=== PATIENT | female | born 1940 | race Caucasian/White ===

== ENCOUNTER 2023-11-22 16:45 | Inpatient (IN) | payer MEDICARE, BC, SELFPAY ==
[2023-11-22] VITALS (7 sets, daily range): BP systolic 119–162; BP diastolic 68–89; PULSE 97; BMI 22.8
--- NOTE | 2023-11-22 12:41 | ED.GENMED ---
History of Present Illness
General
Chief Complaint: Abdominal Symptoms
Source: patient
Exam Limitations: none
Time Seen by Provider: 11/22/23 12:41
Nursing documentation reviewed up to this point in time: agreed with
Travel History
Have you had any contact with someone who has COVID-19?: No
Do you have any symptoms of coronavirus? Fever > 100 degrees, chills, cough, shortness of breath, sore throat, loss of taste or smell, muscle aches, or headache?: No
History of Present Illness
History of Present Illness:
83-year-old female w h/o HLD, HTN, breast CA, sent here from [facility] for abdominal swelling, recently discovered pancreatic mass concern for obstructive process, may need stent/MRCP. She has been evaluated at [facility], had CT scan
there, showed 'Pancreas cancer' per patient. Sent to [facility] for evaluation and had her first appointment yesterday, follow up visit today with Dr. Garcia and sent here for elevated liver enzymes and abd swelling.
Pt denies pain, states 'I feel good.' Denies CP, SOB, palpitations but it is noted on EKG she has Afib with RVR which she's never had before.
Review of Systems
Review of Systems
Allergies reviewed?: Yes
All Other Systems: ROS reviewed and negative except as documented in HPI and ROS
Constitutional: Denies fever, fatigue or chills
Respiratory: Denies trouble breathing
Cardiac: Denies chest pain
ABD/GI: Reports other (stools are yellow); Denies abdominal pain, nausea or vomiting
: Reports other (urine is bright yellow); Denies dysuria, frequency or difficulty voiding
Musculoskeletal: Reports no symptoms
Skin: Reports no symptoms
Neurological: Reports no symptoms
Phy Exam
Physical Exam
Physical Exam:
GENERAL: No acute distress. A&Ox3.
CONSTITUTIONAL: Afebrile.
EYES: clear, conjunctivae normal
ENMT: moist mucus membranes, Pharynx nl
RESPIRATORY: Regular respirations, nonlabored, lungs clear.
CARDIOVASCULAR: Irregular rate, tachycardic. no murmurs, no rubs. A fib on bedside monitor.
GI: abdomen soft, distended, mid abd firm mass when pt pushes down and tightens abd muscles.
MUSCULOSKELETAL: Moves with ease. Well perfused. No edema.
SKIN: Warm, dry, yellow hue to skin
PSYCH: Normal mood and affect. Well kept, interactive and appropriate
NEUROLOGIC: Awake, alert and oriented. No focal neurological deficits
Course
Orders/Labs/Results
Orders:
Orders
11/22/23
Electrocardiogram (*1) Stat
Comment: ALREADY DONE
11/22/23 13:05
Electrocardiogram (*1) Urgent
Reason for Study: Atrial Fibrillation
EKG- Treatment ONCE
0.9% Sodium Chloride 1000 ml [Nss] 1,000 ml IV BOLUS
11/22/23 13:47
CA 19-9 [S] Urgent
Comment: ADD ON
Complete Blood Count/With Diff Urgent
Comprehensive Metabolic Panel Urgent
Lipase Urgent
Magnesium Urgent
Comment: MAG ADDED ON BY FLOOR 4:10PM 11-22-23
TSH Reflex To Free T4 Urgent
Comment: TSH REFLEX ADDED ON BY FLOOR 4:45PM 11-22-23
11/22/23 Dinner
Regular
At Your Request: Full Participation
11/22/23 15:07
GASTROINTESTINAL CONSULT Urgent
Consulting Provider: Arina Allen
Was physician already notified: Yes
Reason for consult: biliary obstruction, Dr. Davidson requests consult, pt admitted, not urgent
11/22/23 15:37
Echo 2D MMode Color/Doppler Routine
Reason for Study: afib
Potassium Chloride [KCl] 40 meq PO NOW STA
11/22/23 15:54
CARDIOLOGY CONSULT Routine
Consulting Provider: Josemanuel Gay
Was physician already notified: Yes
Reason for consult: new Afib
11/22/23 16:00
Add On- LAB Routine
Tests Added?: ca 19-9
11/22/23 16:05
Old Records Request [Obtain Records] As Directed
Dates of Information to be Released: last
Type of Information Requested: Consults
Comment: Dr Lorenzana [facility]
11/22/23 16:06
Admit/Transfer Patient As Directed
Co-Sign Provider:
Level of Care: Inpatient admission
Assign to:: Telemetry
Physician / Group: Hospitalist
Diagnosis: Painless jaundice, atrial fibrillation-new onset
Reason for Telemetry: Arrhythmia
Date to Stop Telemetry: 11/25/23
Time to Stop Telemetry: 11:00
Reason for Hospitalization: Painless jaundice, atrial fibrillation-new onset
Expected length of stay greater than two midnights?: Yes
ELOS- Estimated Length of Stay in days: 3
I certify the patient meets the requirements for IP care: Yes
HEMATOLOGY CONSULT Routine
Consulting Provider: Romeo Davidson
Was physician already notified: Yes
Reason for consult: pancre ca
11/22/23 16:07
Code Status As Directed
Resuscitation Status: Full Code
11/22/23 16:11
Add On- LAB Routine
Tests Added?: mag
11/22/23 16:13
MR Abdomen W/o & W Contrast Routine
Reason For Exam: with MRCP also. TY
Recent pill cam endoscopy?: No
11/22/23 18:07
Bisacodyl [Dulcolax] 10 mg RECTAL [id number] PRN
Dextrose 50%-Water [Dextrose 50% Syringe] 12.5 grams IV [id number] PRN
Enoxaparin Sodium [Lovenox] 40 mg SC QPM
Glucagon [GlucaGen] 1 mg IM PRN PRN
Insulin Aspart Corrective Low [Novolog Flexpen-Low Resistance] See Protocol SC AC
Oxycodone [Roxicodone] 5 mg PO Q4HPRN PRN
11/22/23 18:07
Activity As Directed
Activity Level: Ambulate
Bedside Glucose Monitoring As Directed
Frequency: AC&HS
Additional Instructions:: Change to q6h if pt on TPN, tube feeding or not eating
Vital Signs As Directed
Frequency: Per unit guidelines
DX Deep Vein Thrombosis Video Routine
11/22/23 18:46
Troponin I Q6H
11/22/23 20:00
Docusate Sodium [Colace] 100 mg PO BID
Lisinopril [Zestril] 10 mg PO BID
Metoprolol Xl [Toprol Xl] 12.5 mg PO BID
Sennosides [Senokot] 8.6 mg PO BID
11/22/23 21:45
Troponin I Q6H
11/22/23 22:00
Gabapentin [Neurontin] 100 mg PO TID
11/23/23 03:45
Troponin I Q6H
11/23/23 06:00
Complete Blood Count/No Diff IN AM
Complete Blood Count/With Diff IN AM
Glycohemoglobin (HgbA1c) IN AM
Magnesium IN AM
11/23/23 08:00
Loratadine [Claritin] 10 mg PO DAILY
Polyethylene Glycol Powder [Miralax] 17 grams PO DAILY
11/25/23 11:00
DC Protocol for Telemetry ONCE
Abnormal Lab Results
11/22/23
13:47
RBC 3.96 L 10^6/uL
(4.20-5.40)
Hct 34.3 L %
(37.0-47.0)
RDW 15.3 H %
(11.5-14.5)
MPV 10.8 H fL
(7.4-10.4)
Absolute Lymphs (auto) 1.1 L 10^3/uL
(1.2-3.4)
Absolute Monos (auto) 0.9 H 10^3/uL
(0.1-0.6)
Lymphocytes % 14.1 L %
(20.5-51.1)
Monocytes % 12.1 H %
(1.7-9.3)
Potassium 3.3 L mmol/L
(3.5-5.1)
BUN 27 H mg/dl
(7-17)
Glucose 216 H mg/dl
(70-99)
Magnesium 1.5 L mg/dl
(1.6-2.3)
Total Bilirubin 9.0 H mg/dl
(0.2-1.3)
AST 287 H U/L
(14-36)
ALT 163 H U/L
(0-35)
Alkaline Phosphatase 1097 H U/L
(38-126)
11/22/23 13:47
11/22/23 13:47
Vital Signs
Initial and Last Documented VS:
Initial Vital Signs
Temp Pulse Resp BP Pulse Ox
98.5 F 99 20 162/89 96
11/22/23 12:08 11/22/23 12:08 11/22/23 12:08 11/22/23 12:08 11/22/23 12:08
Last Documented Vital Signs
Temp Pulse Resp BP Pulse Ox
97.9 F 65 18 119/75 98
11/22/23 18:09 11/22/23 18:09 11/22/23 18:09 11/22/23 18:09 11/22/23 18:09
MDM/Problems Addressed
MDM/Problems Addressed:
83-year-old female w h/o HLD, HTN, breast CA, sent here from [facility] for abdominal swelling, recently discovered pancreatic mass concern for obstructive process, may need stent/MRCP. She has been evaluated at [facility], had CT scan
there, showed 'Pancreas cancer' per patient. Sent to [facility] for evaluation and had her first appointment yesterday, follow up visit today with Dr. Garcia and sent here for elevated liver enzymes and abd swelling.
Pt denies pain, states 'I feel good.' Denies CP, SOB, palpitations but it is noted on EKG she has Afib with RVR which she's never had before.
1:05 p.m.
Monitor now showing NSR HR 72
2:58 p.m.
CBC:
CMP: Bilirubin 8
No success in obtaining CT abd report from [facility].
Spoke with Oncology Dr. Davidson. States pt w h/o lung CA with RUL lobectomy, recent found pancreatic head mass and liver enzymes and bilirubin up on yesterday's labs.
Dr. Davidson texted the report to me ' findings concerning for neoplasm involving the head of the pancreas. There is underlying atrophy in the dictation of the pancreatic duct in the body and tail the pancreas as well as intra and extrahepatic
biliary ductal dilation.'. He spoke with Dr. Thomas Nash who does biliary stenting and will be available to stent this patient on after holiday weekend (he is away until then)
Requests MRCP today, consult GI, admit to Hospitalist
Pt remains stable, is comfortable and OK with plan
Hospitalist notified of admission.
*Critical Care Note
Total Time (30-74mins, 75-104mins- exclusive of procedures): Not Applicable
ED Attending Note
-
Portions of this chart may have been created with voice recognition software.� Occasional wrong word or��sound alike� substitutions may have occurred due to the inherent limitations of voice recognition software.
Discharge Plan
Departure
Patient Disposition: Admit
Date of Disposition: 11/22/23
Time of Disposition: 14:53
Admit to: Med/Surg
Presentation/result/management discussed w/ accepting MD/DO: Hospitalist
Condition: Fair
Discharge Problem:
Mass of head of pancreas, New onset a-fib, Atrial fibrillation with RVR, Jaundice, Abdominal distension
Interventions
Interventions:
*Risk Screen - Suicide Last Done: 11/22/23 12:30
*General Assessment Last Done: 11/22/23 12:30
*Neglect/Abuse Screening Last Done: 11/22/23 12:30
ED- Fall Risk Assessment Last Done: 11/22/23 17:44
*ED COVID-19 Vaccine History Last Done: 11/22/23 12:30
*Nursing Disposition Last Done: 11/22/23 17:44
DP-Cvcegu-Atwbyxkocb Assessment Last Done: 11/22/23 12:29
Discharge Date and Time
Discharge Date/Time: 11/22/23 17:57
[2023-11-22] MEDS: NSS 1000 IV (13:52)
[2023-11-22 14:01] LABS: % Basophils 0.9 % (0-2); % Eosinophils 2.2 % (0-6); % Immature Granulocytes 0.4 % (0-0.5); % Lymphocytes 14.1 % (20.5-51.1); % Monocytes 12.1 % (1.7-9.3); % Neutrophils 70.3 % (42.2-75.2); Absolute Basophils 0.1 10^3/uL (0-0.2); Absolute Eosinophils 0.2 10^3/uL (0-0.7); Absolute Lymphocytes 1.1 10^3/uL (1.2-3.4); Absolute Monocytes 0.9 10^3/uL (0.1-0.6); Absolute Neutrophils 5.4 10^3/uL (1.4-6.5); Hematocrit 34.3 % (37.0-47.0); Mean Corpuscular Hgb 30.3 pg (27.0-31.0); Mean Corpuscular Volume 86.6 fL (81.0-99.0); Mean Platelet Volume 10.8 fL (7.4-10.4); Nucleated Red Blood Cells % 0 %; Platelet Count 320 10^3/uL (130-400); Red Blood Cell Count 3.96 10^6/uL (4.20-5.40); Red Cell Dist. Width 15.3 % (11.5-14.5); White Blood Cell Count 7.7 10^3/uL (4.8-10.8)
[2023-11-22 14:14] LABS: ALT (SGPT) 163 U/L (0-35); AST (SGOT) 287 U/L (14-36); Albumin 3.5 g/dl (3.5-5.0); Alkaline Phosphatase 1097 U/L (38-126); Blood Urea Nitrogen 27 mg/dl (7-17); Calcium 10.1 mg/dl (8.4-10.2); Carbon Dioxide 29 mmol/L (22-30); Chloride 98 mmol/L (98-107); Glucose 216 mg/dl (70-99); Lipase 157 U/L (23-300); Potassium 3.3 mmol/L (3.5-5.1); Sodium 137 mmol/L (135-145); Total Protein 6.9 g/dl (6.3-8.2); eGFR > 60.00
--- NOTE | 2023-11-22 15:32 | HPS.HSE ---
Family Physician
-
Family Physician: Ana Zelaya
Chief Complaint
-
Abnormal CT
History of Present Illness
83-year-old female had a CT done at [facility] which showed pancreatic mass but it she [facility] patient here for MRI and also possible CBD stent and rule out infection. ER Pt has been diagnosed with Afib also. She converted back to
regular rhythm . Patient denies any fevers or chills. She has noted dark urine and also yellow eyes. Patient also has 25 pound weight loss over 4 months and loss of appetite. She also noted a lump on her abdomen
Medical History
Past Medical History
Past Medical History: Reports Other
Additional Past Medical History:
Breast cancer, lung cancer, Hypertension, hyperlipidemia, 'brain bleed on the right side from a blood clot'-stroke, diabetes
Past Surgical History: Reports Other
Additional Past Surgical History:
Spine surgery, right breast cancer surgery, left lung lobectomy, left carotid stent
Social History
Tobacco: Former Smoker (Quit smoking 2003)
Alcohol: Other (She is to drink half a glass of wine up until a month ago then totally quit)
Drug: None
Personal:
Living: With Family
Family History
Family History: Cancer (Father had cancer of head and neck, lung cancer, sister with pancreatic cancer, another sister with bladder cancer, he had another sister with WHITE WASHER PILER malignancy)
Allergies / Home Medications
Allergies reflects when Allergies were last updated in [facility].
Home Medications with original date entered in [facility]
Allergy/Medication List:
Allergies
Allergy/AdvReac Type Severity Reaction Status Date / Time
adhesive tape Allergy Unknown Verified 11/22/23 12:08
Home Medications
amlodipine 5 mg tablet (Norvasc) 5 mg PO DAILY 11/22/23
ascorbic acid (vitamin C) 100 mg tablet (Vitamin C) 400 mg PO DAILY 11/22/23
aspirin 81 mg tablet,delayed release 81 mg PO DAILY 11/22/23
atorvastatin 40 mg tablet (Lipitor) 40 mg PO DAILY 11/22/23
calcium carbonate (Calcium 600) 600 mg PO DAILY 11/22/23
furosemide 40 mg tablet (Lasix) 40 mg PO DAILY 11/22/23
gabapentin 100 mg capsule 100 mg PO TID 11/22/23
hydrocodone 7.5 mg-acetaminophen 325 mg tablet 1 tab PO QID 11/22/23
lisinopril 10 mg tablet 10 mg PO BID 11/22/23
loratadine 10 mg tablet (Claritin) 10 mg PO DAILY 11/22/23
multivitamin with minerals 1 tab PO DAILY 11/22/23
omega 9-gvs-szm-fish oil 1,000 mg (120 mg-180 mg) capsule (Fish Oil) 1 cap PO BID 11/22/23
polyethylene glycol 3350 17 gram oral powder packet (Miralax) 17 g PO DAILY 11/22/23
vitamins A,C,N-eozd-tvqbga 2,148 mcg-113 mg-45 mg-17.4 mg tablet (PreserVision AREDS) 1 tab PO BID 11/22/23
Patient states that she was on a diabetic pill which was stopped recently
Review of Systems
-
A 12 point ROS was completed and negative except as noted: Yes
Constitutional: Reports Weight Loss (25 pound weight loss)
Respiratory: Denies Trouble Breathing
Cardiac: Denies Chest Pain
Abdomen/GI: Reports Abdominal Pain; Denies Vomiting or Diarrhea
Neurological: Denies Headache
Physical Exam
Vital Signs
Vital Signs
Temp Pulse Resp BP Pulse Ox
98.5 F 69 18 136/86 98
11/22/23 12:08 11/22/23 13:30 11/22/23 13:30 11/22/23 13:27 11/22/23 13:30
Physical Exam
General: Comfortable and Conversant
HEENT: Other (Icterus)
Respiratory: Clear
Cardiac: S1/S2, Regular Rhythm and Murmur (Aortic area)
GI: Soft, Normal Bowel Sounds and Other (Ventral hernia)
Neuro: Nonfocal/grossly intact
Psych: Intact Judgment/Insight
Laboratory Results
-
11/22/23 13:47
11/22/23 13:47
Laboratory Results
Total Bilirubin 9.0 mg/dl (0.2-1.3) H 11/22/23 13:47
AST 287 U/L (14-36) H 11/22/23 13:47
ALT 163 U/L (0-35) H 11/22/23 13:47
Alkaline Phosphatase 1097 U/L (38-126) H 11/22/23 13:47
Lipase 157 U/L (23-300) 11/22/23 13:47
Data Reviewed
-
CT Scan: Report Reviewed by me (CT scan of the abdomen and pelvis done at [place] [facility]-findings concerning for neoplasm involving head of the pancreas there is underlying atrophy and dilatation of the pancreatic duct in the body and tail of as well as
intra and extrahepatic biliary dilatation.)
Ultrasound: Report Reviewed by me (Ultrasound of the pelvis done at [place]-nonvisualization of the ovaries unremarkable ultrasound of the uterus)
Impression/Plan
-
IMPRESSION/PLAN:
# Pancreatic mass
Likely malignancy with patient's weight loss, loss of appetite, painless jaundice
Markedly elevated LFTS
May need a biliary stent to be placed
Consult GI for ERCP/EUS and stent placement
Patient does not have any symptoms of infection-no fever if develops a fever consider antibiotics initiation.
GI and oncology consultation
Add on a CA 19-9 level
MRI/MRCP ordered
# Paroxysmal atrial fibrillation
Patient had rapid A-fib in the ER currently in sinus rhythm
Patient does not report a history
Also has an aortic area murmur on exam
Echo ordered
Troponins to rule out ischemia
Cardiology evaluation with new onset A-fib
May not be a candidate for initiation of anticoagulation at present
We will do low-dose of beta-blockers
# Hypokalemia-correct
# Hypertension-hold off on amlodipine continue lisinopril and add beta-mary alice
# Hyperlipidemia-hold off on atorvastatin given elevated LFTs
# Diabetes-sliding scale coverage with Accu-Cheks
Patient was on a 'diabetic pill 'for a month which was stopped recently because of her A1c came down to 7.
# History of right breast cancer with mastectomy chemo and radiation 1999
# History of lung cancer on the left side with history of lobectomy in 2000
# Nq-mybxvw-iuza in 2003
# History of carotid stent on the left side
# History of hemorrhagic stroke-details unclear
# Chronic right arm pain after shoulder surgery for which she is on gabapentin and hydrocodone
# DVT prophylaxis-Lovenox
# Full code
Discussed with Dr. Davidson
Discussed with nursing
Discussed with patient's at bedside
Unclear why she is on Lasix. She sees Dr. Lorenzana as outpatient had a checkup 2 months ago. Need to get records
Records from [facility] reviewed.
Time 76 min
[2023-11-22] MEDS: KCL 40 MEQ PO (15:52)
--- NOTE | 2023-11-22 16:24 | CON.CAR ---
Addendum entered and electronically signed by Josemanuel Gay MD 11/22/23 18:28:
Patient of Dr. Josemanuel Lorenzana.
83-year-old woman presenting to the emergency department with abdominal distention and abnormal LFTs in the setting of a pancreatic mass. Upon presentation she was in rapid atrial fibrillation but spontaneously reverted to normal sinus rhythm.
Followed by Dr. Lorenzana of [facility] cardiology. She had no awareness of atrial fibrillation here in the emergency department, though she is anxious related to her medical status.
PMH: Pancreatic mass, hypertension, hyperlipidemia, diabetes, right breast cancer 1999 treated with mastectomy chemo and radiation, left lung cancer resected 2000, left carotid stent, remote hemorrhagic stroke, obstructive sleep apnea
PSH: As above
SH: , ex smoker, no drugs, retired
FH: Currently noncontributory
Allergies: None to meds
Medications at admission: Amlodipine, aspirin 81 mg a day, atorvastatin 40 mg a day, furosemide 40 mg a day, gabapentin 100 mg 3 times daily, hydrocodone, lisinopril 10 mg a day, loratadine, omega-3,
ROS: Negative except as above
136/86, pulse 57, respiratory rate 14, afebrile
No acute distress, head neck exam unremarkable, lungs are clear, regular rate and rhythm with soft aortic stenosis murmur, soft bruits in carotids, neck veins okay, abdomen distended, extremities without clubbing cyanosis or edema distal pulses
intact
Hemoglobin 12, platelets 302, chemistries pending
Abdominal MRI: Pending
Echocardiogram: Mild LVH, EF 60-65%, mitral annular calcification, trace MR, dilated left atrium, mild aortic stenosis peak gradient 24 mmHg, normal right heart
ECG #1: Sinus rhythm, LVH, ECG #2 atrial fibrillation rapid ventricular response inferolateral ST segment changes
Impression:
Pancreatic mass
Paroxysmal atrial fibrillation, newly detected
History of left carotid stent
Mild aortic stenosis
Hypertension
Hyperlipidemia
Right breast cancer, reconstruction, XRT, chemo, mastectomy
Left lung lobectomy 2000
History of hemorrhagic CVA
Obstructive sleep apnea
Cervical and lumbar laminectomy
Plan:
She presents with asymptomatic atrial fibrillation in the setting of a newly discovered pancreatic mass.
Will treat with heparin, convert to Eliquis or Xarelto after biopsies, etc., add low-dose metoprolol providing bradycardia does not preclude.
We will continue to follow.
Original Note:
Consultation
Consultation Request
Date/Time Consultation Performed: 11/22/23
Requesting Provider: Dr. Gonzalez
Performing Provider: Yana Linder PA-C for Dr. KENZIE Gay
Reason for Consultation: new afib
Medical History
-
Chief Complaint: abdominal swelling
History of Present Illness:
HPI: Sheela is an 83 year old female with PMH of pancreatic mass, HTN, HLD, DM, breast cancer, lung cancer, carotid stent, hemorrhagic stroke, and former tobacco abuse who presented to [facility] for evaluation due to abdominal swelling and abnormal
labwork. She was recently found to have a pancreatic mass and workup has been started with [facility]. She reports she was told she may need drainage/biopsy this admission. In ER, she was found to be in rapid atrial fibrillation on initial EKG. She
reports no history of atrial fibrillation, but follows with Dr. Lorenzana. She was asymptomatic with her atrial fibrillation and denies any chest pain, palpitations, dizziness, lightheadedness, LE edema, or SOB. States she felt a bit anxious coming in
to the ER, just because she was unsure what was ahead as far as management/plan for the pancreatic mass, however other than anxiety, felt well. While in ER, spontaneously converted to SR and remains in SR at this time. She states she feels no
different now than when she did when she entered the ER.
PMH:
Pancreatic mass
HTN
HLD
DM
History of R breast cancer s/p mastectomy, chemotherapy, radiation 1999
History of L lung cancer s/p lobectomy 2000
h/o carotid stenosis s/p L carotid stent
h/o hemorrhagic stroke
Former smoker
ANASTASIA, compliant w/ CPAP
Past Medical History
Past Medical History: Other (in HPI)
Social History
Tobacco: Former Smoker
Alcohol: None
Drug: None
Personal:
Living: With Family
Employment: Retired
Family History
Family History: Cancer
Allergies / Home Medications
Allergy/AdvReac Type Severity Reaction Status Date / Time
adhesive tape Allergy Unknown Verified 11/22/23 12:08
�Medication �Instructions �Recorded �Confirmed �Type
amlodipine 5 mg tablet (Norvasc) 5 mg PO DAILY 11/22/23 11/22/23 History
ascorbic acid (vitamin C) 100 mg 400 mg PO DAILY 11/22/23 11/22/23 History
tablet (Vitamin C)
aspirin 81 mg tablet,delayed 81 mg PO DAILY 11/22/23 11/22/23 History
release
atorvastatin 40 mg tablet (Lipitor) 40 mg PO DAILY 11/22/23 11/22/23 History
calcium carbonate (Calcium 600) 600 mg PO DAILY 11/22/23 11/22/23 History
furosemide 40 mg tablet (Lasix) 40 mg PO DAILY 11/22/23 11/22/23 History
gabapentin 100 mg capsule 100 mg PO TID 11/22/23 11/22/23 History
hydrocodone 7.5 mg-acetaminophen 1 tab PO QID 11/22/23 11/22/23 History
325 mg tablet
lisinopril 10 mg tablet 10 mg PO BID 11/22/23 11/22/23 History
loratadine 10 mg tablet (Claritin) 10 mg PO DAILY 11/22/23 11/22/23 History
multivitamin with minerals 1 tab PO DAILY 11/22/23 11/22/23 History
omega 1-rqm-xin-fish oil 1,000 mg 1 cap PO BID 11/22/23 11/22/23 History
(120 mg-180 mg) capsule (Fish Oil)
polyethylene glycol 3350 17 gram 17 g PO DAILY 11/22/23 11/22/23 History
oral powder packet (Miralax)
vitamins A,C,Z-siyw-oyoklb 2,148 1 tab PO BID 11/22/23 11/22/23 History
mcg-113 mg-45 mg-17.4 mg tablet
(PreserVision AREDS)
Review of Systems
-
History Source: Patient
All other systems: Negative unless noted
Physical Exam
Vital Signs
Temp Pulse Resp BP Pulse Ox
98.5 F 69 18 136/86 98
11/22/23 12:08 11/22/23 13:30 11/22/23 13:30 11/22/23 13:27 11/22/23 13:30
Lab Results
11/22/23 13:47
11/22/23 13:47
Physical Exam
General: Well Developed, Well Nourished and No Apparent Distress
HEENT: Normocephalic, Anicteric and Moist Mucous Membranes
Respiratory: Clear and Non Labored Respirations
Cardiac: S1/S2, Regular Rhythm and Murmur
Musculoskeletal: No Clubbing, No Cyanosis and No Edema
Neuro: AO x 3 and Nonfocal/Grossly Intact
Psych: Calm
Impression / Plan
-
Clinical Informatics Specialist: Dr. Lorenzana ([facility])
Impression:
Presented with abdominal swelling
Pancreatic mass, concern for malignancy
Paroxysmal atrial fibrillation - newly diagnosed
spontaneously converted to SR in ER
Hypokalemia
HTN
HLD
DM
History of R breast cancer s/p mastectomy, chemotherapy, radiation 1999
History of L lung cancer s/p lobectomy 2000
h/o carotid stenosis s/p L carotid stent
mild by echo 12/2020
h/o CVA
Former smoker
ANASTASIA, compliant w/ CPAP
Echo 01/06/2021 @[facility]: EF 50-55%, mild cLVH, mild w/ peak/mean gradients 22/14 mmHg
Echo 11/22/2023: Study completed, report pending
Plan:
-Presented for evaluation of abdominal swelling and abnormal labwork.
-Found to be in rapid atrial fibrillation on initial EKG. New diagnosis.
-Spontaneously converted to SR in ER. Remains in SR at this time. HR stable in the 50s - 60s.
-CHADS-VASc score 8 (Age 74, female, HTN, CVA, vascular disease, DM). Will start anticoagulation with IV heparin.
-Planned for possible procedures/biopsy of pancreatic mass.
-Eventually transition to Eliquis 5mg BID. Will ask CM to assess the cost.
-HR stable without any rate control medications. Will start low dose Toprol 12.5mg daily.
-K 3.3. Agree w/ repletion. Mag 1.5, replete.
-Check TSH.
-Echo checked 11/21, report pending. She has known h/o mild by most recent OP echo 01/06/2021
-Troponin pending. Denies chest pain.
-Known ANASTASIA and reports she is compliant w/ CPAP.
HPI: Sheela is an 83 year old female with PMH of pancreatic mass, HTN, HLD, DM, breast cancer, lung cancer, carotid stent, hemorrhagic stroke, and former tobacco abuse who presented to [facility] for evaluation due to abdominal swelling and abnormal
labwork. She was recently found to have a pancreatic mass and workup has been started with [facility]. She reports she was told she may need drainage/biopsy this admission. In ER, she was found to be in rapid atrial fibrillation on initial EKG. She
reports no history of atrial fibrillation, but follows with Dr. Lorenzana. She was asymptomatic with her atrial fibrillation and denies any chest pain, palpitations, dizziness, lightheadedness, LE edema, or SOB. States she felt a bit anxious coming in
to the ER, just because she was unsure what was ahead as far as management/plan for the pancreatic mass, however other than anxiety, felt well. While in ER, spontaneously converted to SR and remains in SR at this time. She states she feels no
different now than when she did when she entered the ER.
Data Reviewed
-
EKG: Tracing Personally Visualized and interpreted
Labs: Labs Reviewed by me
Old Records: Requested and Reviewed
[2023-11-22 16:39] LABS: Magnesium 1.5 mg/dl (1.6-2.3)
[2023-11-22 17:45] LABS: TSH Reflex To Free T4 0.68 uIU/ml (0.47-4.68)
[2023-11-22] MEDS: NOVOLOG FLEXPEN-LOW RESISTANCE 1 UNITS SC (18:50)
[2023-11-22 18:51] LABS: Glucose - Point of Care 195 mg/dl (70-99)
[2023-11-22 18:51] LABS: Hematocrit 33.5 % (37.0-47.0); Mean Corp Hgb Conc. 35.8 g/dL (33.0-37.0); Mean Corpuscular Hgb 30.7 pg (27.0-31.0); Mean Corpuscular Volume 85.7 fL (81.0-99.0); Mean Platelet Volume 10.4 fL (7.4-10.4); Platelet Count 335 10^3/uL (130-400); Red Blood Cell Count 3.91 10^6/uL (4.20-5.40); Red Cell Dist. Width 15.4 % (11.5-14.5); White Blood Cell Count 8.3 10^3/uL (4.8-10.8)
--- NOTE | 2023-11-22 19:20 | PTCARENOTE ---
Pt. went into a junctional rhythm and is leona in the 40-50s and is asymptomatic, FUEL CELL ASSEMBLER Yoel Nesbitt made aware. Passed onto oncoming shift nurse to monitor bp and HR before pain and bp medications per Yoel. Pt. resting in bed at this time, call
peng in reach.
[2023-11-22] MEDS: HEPARIN 25000 UNITS/250 ML IV (19:32)
[2023-11-22] MEDS: MAGNESIUM OXIDE 500 MG PO (19:32)
[2023-11-22] MEDS: ROXICODONE 5 MG PO (19:45)
[2023-11-22] MEDS: SENOKOT 8.59999999999999964 MG PO (20:16)
[2023-11-22] MEDS: COLACE 100 MG PO (20:16)
[2023-11-22] MEDS: ZESTRIL 10 MG PO (20:16)
[2023-11-22] MEDS: TOPROL XL 12.5 MG PO (20:16)
[2023-11-22 21:32] LABS: Glucose - Point of Care 317 mg/dl (70-99)
[2023-11-22] MEDS: NEURONTIN 100 MG PO (22:13)
[2023-11-22] MEDS: NOVOLOG FLEXPEN 4 UNITS SC (22:14)
[2023-11-23] VITALS (7 sets, daily range): BP systolic 120–175; BP diastolic 50–79; PULSE 51; BMI 22.9
[2023-11-23] MEDS: ROXICODONE 5 MG PO ×4 (00:32→20:10)
[2023-11-23 01:50] LABS: APTT 92.2 Sec (23.4-35.0)
[2023-11-23 02:02] LABS: Troponin I 0.033 ng/ml
[2023-11-23 06:59] LABS: % Basophils 0.8 % (0-2); % Eosinophils 2.9 % (0-6); % Immature Granulocytes 0.2 % (0-0.5); % Lymphocytes 16.5 % (20.5-51.1); % Monocytes 12.9 % (1.7-9.3); % Neutrophils 66.7 % (42.2-75.2); Absolute Basophils 0.1 10^3/uL (0-0.2); Absolute Eosinophils 0.2 10^3/uL (0-0.7); Absolute Lymphocytes 1.4 10^3/uL (1.2-3.4); Absolute Monocytes 1.1 10^3/uL (0.1-0.6); Absolute Neutrophils 5.5 10^3/uL (1.4-6.5); Hematocrit 32.6 % (37.0-47.0); Hemoglobin 11.3 g/dL (12.0-16.0); Mean Corp Hgb Conc. 34.7 g/dL (33.0-37.0); Mean Corpuscular Hgb 30.3 pg (27.0-31.0); Mean Corpuscular Volume 87.4 fL (81.0-99.0); Mean Platelet Volume 11.3 fL (7.4-10.4); Nucleated Red Blood Cells % 0 %; Platelet Count 326 10^3/uL (130-400); Red Blood Cell Count 3.73 10^6/uL (4.20-5.40); Red Cell Dist. Width 15.4 % (11.5-14.5); White Blood Cell Count 8.3 10^3/uL (4.8-10.8)
--- NOTE | 2023-11-23 07:11 | CON.GI ---
Addendum entered and electronically signed by Arina Smith Do, MD 11/23/23 12:18:
I saw and examined the patient.
The FAMILY COACH's note was reviewed and I agree with the note.
Comment: Sheela is an 83yo W with h/o breast cancer and lung cancer followed by Dr Mayfield sent to ED from [facility] for abnormal CT at [place] with pancreatic mass. She also reports jaundice for past 2 wks and new diabetes diagnosed 2 months
ago. Exam VSS. jaundice icteric no abd pain to palpation. Labs reviewed no leukocytosis.
Impression
- Painless jaundice
- Pancreatic head mass with vascular involvement and CBD dilation 1.9cm
- h/o lung cancer
- h/o breast cancer
- New afib
- CVA
- DM
- ANASTASIA
Recommendation
- DM diet
- Ok for lovenox now. Anticipate last dose Saturday AM for EUS/ERCP on Saturday with Dr Nash
- I did d/w pt that GI procedure timing is subject to change depending on acuity of other cases over holiday weekend
- Serial LFTs
Will follow with you
Original Note:
Consultation
-
Date/Time Consultation Requested: 11/22/23 1500
Date/Time Consultation Performed: 11/22/23 0845
Requesting Provider: SHELBY Mckoy
Performing Provider: SHELBY Villa, Arina Allen MD
Reason for Consultation: abnormal imaging, eval for EUS
Medical History
Chief Complaint / HPI
Chief Complaint: abdominal pain
History of Present Illness:
Pt is a 83yo with hx breast CA with mastectomy, chemo and radiation, left carotid stent, mild , left lobectomy for lung CA with chemo, hemorrhagic CVA, new NIDDM 2 months ago, sleep apnea, cervical and lumbar lami, HTN, hyperlipidemia follows
with [facility] and sent to for abnormal CT completed [facility]. Per hospitalist review CT A/p at [place] with concern for neoplasm involving head of pancreas with underlying atrophy and dilatation of pancreatic duct in body
and tail as well as intra and extrahepatic biliary dilation. US pelvis with non visualization of ovaries. On admission labs notable for k 3.0, bili 9, AST 287, ALT 163, alk phos 1097 with normal lipase 157. Pt was also seen by cardiology on
admission with rapid afib with spontaneous conversion to normal sinus and placed on heparin gtt.
In reviewing with patient she began with wt loss now up to 20 lbs, early satiety, nausea, and upper abdominal fullness over last few months. She also reports itching, dark urine and pale stools for several weeks. She had chronic constipation
on Miralax daily. She denies dysphagia, GERD, vomiting, diarrhea, or bleeding. Pt also reports extensive history of malignancies. She reports negative genetic testing in past.
Past Medical History
Past Medical History: Arrhythmias (PAF new on admission), Cancer (breast CA- right with mastectomy, chemo and radiation, lung CA with lobectomy and chemo), CVA (hemorrhagic CVA), HTN, Hypercholesterolemia, NIDDM, Valvular Disease (mild ) and Other
(sleep apnea)
Past Surgical History: Gynecological (mastectomy), Orthopedic (cervical and lumbar lami) and Other (left lung lobectomy, carotid stent)
Social History
Tobacco: Former Smoker (quti 2003 )
Alcohol: Other (occasional but 2 months ago with diagnosis of Diabetes )
Drug: None
Personal:
Living: With Family
Employment: Retired
Family History
Family History: Other (father with throat and lung CA, mother Ca in 80's, sister panc CA age 29, other sister uterine and breast CA, third sister READY [employer]MENT MANAGER, liver, esophageal CA -- pt reports self and sister with neg genetic testing)
Allergies / Home Medications
Allergy/AdvReac Type Severity Reaction Status Date / Time
adhesive tape Allergy thin Verified 11/22/23 16:48
skin-skin
tear
�Medication �Instructions �Recorded
amlodipine 5 mg tablet (Norvasc) 5 mg PO DAILY 11/22/23
ascorbic acid (vitamin C) 100 mg 400 mg PO DAILY 11/22/23
tablet (Vitamin C)
aspirin 81 mg tablet,delayed 81 mg PO DAILY 11/22/23
release
atorvastatin 40 mg tablet (Lipitor) 40 mg PO DAILY 11/22/23
calcium carbonate (Calcium 600) 600 mg PO DAILY 11/22/23
furosemide 40 mg tablet (Lasix) 40 mg PO DAILY 11/22/23
gabapentin 100 mg capsule 100 mg PO TID 11/22/23
hydrocodone 7.5 mg-acetaminophen 1 tab PO QID 11/22/23
325 mg tablet
lisinopril 10 mg tablet 10 mg PO BID 11/22/23
loratadine 10 mg tablet (Claritin) 10 mg PO DAILY 11/22/23
multivitamin with minerals 1 tab PO DAILY 11/22/23
omega 2-bgt-ltm-fish oil 1,000 mg 1 cap PO BID 11/22/23
(120 mg-180 mg) capsule (Fish Oil)
polyethylene glycol 3350 17 gram 17 g PO DAILY 11/22/23
oral powder packet (Miralax)
vitamins A,C,L-bjyi-rgrvgx 2,148 1 tab PO BID 11/22/23
mcg-113 mg-45 mg-17.4 mg tablet
(PreserVision AREDS)
Review of Systems
-
History Source: Patient
Constitutional: Reports Weight Loss (20 lbs since July)
EENT: Reports No Symptoms
Respiratory: Reports No Symptoms
Cardiac: Reports No Symptoms
Abdomen/GI: Reports Nausea, Constipated and Other (abdominal fullness, gilbert stools)
: Reports Dark Urine
Musculoskeletal: Reports No Symptoms
Skin: Reports No Symptoms
Neurological: Reports No Symptoms
Endocrine: Reports No Symptoms
Hematologic/Lymphatic: Reports No Symptoms
Vital Signs
Temp Pulse Resp BP Pulse Ox
98.3 F 58 16 122/72 97
11/23/23 03:45 11/23/23 03:45 11/23/23 03:45 11/23/23 03:45 11/23/23 03:45
Physical Exam
Exam
General: Well Developed, Well Nourished and No Apparent Distress
HEENT: Normocephalic and Other (jaundice )
Respiratory: Clear
Cardiac: Regular Rhythm
GI: Soft, Non Tender and Other (upper abdominal fullness )
Musculoskeletal: No Clubbing and No Cyanosis
Skin: Warm and Dry
Neuro: Awake, Alert and AO x 3
Psych: Calm
Results
WBC 8.3 10^3/uL (4.8-10.8) 11/23/23 05:31
Hgb 11.3 g/dL (12.0-16.0) L 11/23/23 05:31
Hct 32.6 % (37.0-47.0) L 11/23/23 05:31
MCV 87.4 fL (81.0-99.0) 11/23/23 05:31
Plt Count 326 10^3/uL (130-400) 11/23/23 05:31
Absolute Neuts (auto) 5.5 10^3/uL (1.4-6.5) 11/23/23 05:31
APTT 92.2 Sec (23.4-35.0) H 11/23/23 01:12
Sodium 137 mmol/L (135-145) 11/22/23 13:47
Potassium 3.3 mmol/L (3.5-5.1) L 11/22/23 13:47
Chloride 98 mmol/L (98-107) 11/22/23 13:47
Carbon Dioxide 29 mmol/L (22-30) 11/22/23 13:47
BUN 27 mg/dl (7-17) H 11/22/23 13:47
Creatinine 0.9 mg/dL (0.6-1.0) 11/22/23 13:47
Calcium 10.1 mg/dl (8.4-10.2) 11/22/23 13:47
Total Bilirubin 9.0 mg/dl (0.2-1.3) H 11/22/23 13:47
AST 287 U/L (14-36) H 11/22/23 13:47
ALT 163 U/L (0-35) H 11/22/23 13:47
Alkaline Phosphatase 1097 U/L (38-126) H 11/22/23 13:47
Lipase 157 U/L (23-300) 11/22/23 13:47
Diagnostic Image Results:
[facility] A/[place] with concern for neoplasm involving head of pancreas with underlying atrophy and dilataton of pancreatic duct in body and tail as well as intra and extrahepatic biliary dilation.
[place] US pelvis with non visualization of ovaries.
Prior GI Procedures:
EGD: last 4 years ago [facility] recall as normal done for esophageal screen with family hx esophageal CA
Colonoscopy: last 4 years ago recalls as normal [facility]
Assessment / Plan
-
Pt is a 83yo with hx breast CA with mastectomy, chemo and radiation, left carotid stent, mild , left lobectomy, hemorrhagic CVA, DM, sleep apnea, cervical and lumbar lami, HTN, hyperlipidemia follows with [facility] and sent to
for abnormal CT completed [facility]. Per hospitalist review CT A/p at [place] with concern for neoplasm involving head of pancreas with underlying atrophy and dilatation of pancreatic duct in body and tail as well as intra and extrahepatic
biliary dilation. US pelvis with non visualization of ovaries. On admission labs notable for K 3.3, bili 9, AST 287, ALT 163, alk phos 1097 with normal lipase 157 . Pt was also seen by cardiology on admission with rapid afib with spontaneous
conversion to normal sinus and placed on heparin gtt. Pt with recent wt loss, dark urine, upper abdominal fullness, nausea and gilbert stools.
-painless jaundice with dark urine and gilbert stools
-CT with concern for pancreatic mass
-elevated LFT's
-afib with conversion to sinus in ER
-minimal increased trop
-constipation
-wt loss
-newly diagnosed DM
other med problems:
History of left carotid stent
Mild aortic stenosis
Hypertension
Hyperlipidemia
Right breast cancer - mastectomy, chemo, radiation
left CA with lobectomy and chemo
CVA
sleep apnea
Cervical and lumbar laminectomy
PLAN:
etiology of symptoms with concern for pancreatic mass with ductal obstruction as noted marked elevation of LFT's vs other
await final reading of MRI
trend LFT's
will need to consider EUS/ERCP for Bx/stent after MRI review-- discussed with patient will be next week timing to be determined based on EUS/ ERCP availability
current heparin gtt with new afib in ER-- eventual transition to Eliquis when able
remains on bowel regiment with senna BID, Miralax daily and Colace
ok for diet change to ADA with new diabetes and add supplement with wt loss
will follow
-
-
Thank you for consultation and allowing me to participate in the patient's care. Please call the dehydrogenation converter helper GI physician during the after hours with any questions or concerns.
[2023-11-23 07:44] LABS: Magnesium 1.6 mg/dl (1.6-2.3)
[2023-11-23 08:52] LABS: ALT (SGPT) 162 U/L (0-35); AST (SGOT) 320 U/L (14-36); Albumin 3.6 g/dl (3.5-5.0); Alkaline Phosphatase 1153 U/L (38-126); Blood Urea Nitrogen 24 mg/dl (7-17); Calcium 10.3 mg/dl (8.4-10.2); Carbon Dioxide 24 mmol/L (22-30); Chloride 100 mmol/L (98-107); Estimated Creatinine Clearance 47 ml/min; Glucose 161 mg/dl (70-99); Sodium 139 mmol/L (135-145); Total Bilirubin 9.2 mg/dl (0.2-1.3); Total Protein 6.9 g/dl (6.3-8.2); eGFR > 60.00
[2023-11-23 09:04] LABS: Glycohemoglobin (HgbA1c) 7.8 % (4.0-5.6)
[2023-11-23] MEDS: MIRALAX 17 GRAMS PO (09:20)
[2023-11-23] MEDS: TOPROL XL 12.5 MG PO (09:21)
[2023-11-23] MEDS: CLARITIN 10 MG PO (09:21)
[2023-11-23] MEDS: COLACE PO (09:21)
[2023-11-23] MEDS: SENOKOT PO (09:21)
[2023-11-23] MEDS: ZESTRIL 10 MG PO ×2 (09:21→20:07)
[2023-11-23] MEDS: NEURONTIN 100 MG PO ×3 (09:21→20:07)
[2023-11-23 09:25] LABS: APTT 135.7 Sec (23.4-35.0)
[2023-11-23] MEDS: NOVOLOG FLEXPEN-LOW RESISTANCE 1 UNITS SC (09:27)
[2023-11-23] MEDS: MAGNESIUM SULFATE 102 GRAMS IV (09:30)
[2023-11-23 09:41] LABS: Troponin I 0.024 ng/ml
--- NOTE | 2023-11-23 11:06 | CON.ONC ---
Impression
Impression
painless jaundice
pancreatic head mass w/ ductal dilatation
h/o lung cancer
h/o breast cancer
paroxysmal afib
Plan
Plan
1. Pancreatic head mass - ductal dilatation - painless jaundice
-GI consulted - EGD/ EUS w/ ERCP possible stent
-w/ vascular involvement on MRI
-additional staging studies will need to be performed - PET/CT as outpt
-Ca 19-9 checked as outpt - pending
-await pathology
will continue to follow with you
Patient History
History of Present Illness
83y/o female seen in oncology consultation today regarding pancreatic head mass.
The patient presented w/ abdominal distention undergoing outpt CT imaging on 11/17 revealing pancreatic head mass. T\\
She presented to the [facility] ER yesterday w/ and elevated bilirbubin of 9.2 along w/ other LFT elevationsin the setting of obstructive jaundice. MRI abdomen was performed revealing a mass within the pancreatic head/proximal body consistent with
neoplasm with associated vascular involvement and pancreatic ductal dilatation. In addition, diffuse dilatation of the intrahepatic and extrahepatic bile ducts with the common bile duct measuring up to 1.9 cm was appreciated.
The patient has been seen by GI w/ plans for EGD/ EUS biopsy as well as possible ERCP w/ stent w/ Dr. Nash.
Clinically, she is feeling better today. She did have a paroxysmal episode of afib in the ER and is on a heparin gtt. No abdominal pain, no nausea or vomiting. She is jaundiced. She has had decreased appetite and weight loss. She has had dark urine
and light stools.
Past-Medical/Surgical History
PMH:
pancreatic head mass
stage IIIA NSCLC - s/p BALDO lobectomy Dr. Schultz 2016 - adjuvant gem/cis
ER negative breast cancer - s/p right mastectomy - chemo in [place]
HTN
hypercholesterolemia
arthritis
intracranial bleed
thyroid problems
carotid artery disease
ANASTASIA
PSH:
s/p RUL lobectomy
s/p right mastectomy
right shoulder surgery
spinal surgery
SH: no tobacco or significant ETOH
FH: sister w/ kidney cancer, sister w/ pancreatic cancer, father w/ lung and throat cancer, mother w/ lung cancer
Allergies: NKDA
Patient Medication
�Medication �Instructions �Recorded �Confirmed �Last Taken �Type
amlodipine 5 mg tablet (Norvasc) 5 mg PO DAILY 11/22/23 11/22/23 11/21/23 History
ascorbic acid (vitamin C) 100 mg 400 mg PO DAILY 11/22/23 11/22/23 Unknown History
tablet (Vitamin C)
aspirin 81 mg tablet,delayed 81 mg PO DAILY 11/22/23 11/22/23 11/21/23 History
release
atorvastatin 40 mg tablet (Lipitor) 40 mg PO DAILY 11/22/23 11/22/23 11/21/23 History
calcium carbonate (Calcium 600) 600 mg PO DAILY 11/22/23 11/22/23 Unknown History
furosemide 40 mg tablet (Lasix) 40 mg PO DAILY 11/22/23 11/22/23 11/22/23 History
gabapentin 100 mg capsule 100 mg PO TID 11/22/23 11/22/23 11/22/23 History
hydrocodone 7.5 mg-acetaminophen 1 tab PO QID 11/22/23 11/22/23 11/22/23 History
325 mg tablet
lisinopril 10 mg tablet 10 mg PO BID 11/22/23 11/22/23 11/22/23 History
loratadine 10 mg tablet (Claritin) 10 mg PO DAILY 11/22/23 11/22/23 Unknown History
multivitamin with minerals 1 tab PO DAILY 11/22/23 11/22/23 Unknown History
omega 5-uzz-geh-fish oil 1,000 mg 1 cap PO BID 11/22/23 11/22/23 11/22/23 History
(120 mg-180 mg) capsule (Fish Oil)
polyethylene glycol 3350 17 gram 17 g PO DAILY 11/22/23 11/22/23 Unknown History
oral powder packet (Miralax)
vitamins A,C,H-ctve-wqxbit 2,148 1 tab PO BID 11/22/23 11/22/23 11/22/23 History
mcg-113 mg-45 mg-17.4 mg tablet
(PreserVision AREDS)
Active Medications
Generic Name Dose Route Start Last Admin
Trade Name Freq PRN Reason Stop Dose Admin
Bisacodyl 10 mg 11/22/23 18:07
Bisacodyl 10 Mg Rectal Suppository RECTAL 12/20/23 18:06
[id number] PRN
constipation
Dextrose 12.5 grams 11/22/23 18:07
Dextrose 50% (0.5 Grams/Ml) 50 Ml Syringe IV 12/20/23 18:06
[id number] PRN
hypoglycemia
Protocol
Docusate Sodium 100 mg 11/22/23 20:00 11/23/23 09:21
Docusate Sodium 100 Mg Capsule PO 12/20/23 19:59 Not Given
BID JERZY
Enoxaparin Sodium 60 mg 11/23/23 11:00
Enoxaparin Sodium 60 Mg/0.6 Ml Syringe SC 12/21/23 10:59
Q12 JERZY
Gabapentin 100 mg 11/22/23 22:00 11/23/23 09:21
Gabapentin 100 Mg Capsule PO 12/20/23 21:59 100 mg
TID JERZY Administration
Glucagon 1 mg 11/22/23 18:07
Glucagon 1 Mg Vial IM 12/20/23 18:06
PRN PRN
hypoglycemia
Protocol
Insulin Aspart 0 units 11/22/23 18:07 11/23/23 09:27
Insulin Aspart Low Resistance 300 Units/3 Ml Pen.Injctr SC 12/20/23 18:06 1 units
AC JERZY Administration
Protocol
Lisinopril 10 mg 11/22/23 20:00 11/23/23 09:21
Lisinopril 10 Mg Tablet PO 12/20/23 19:59 10 mg
BID JERZY Administration
Loratadine 10 mg 11/23/23 08:00 11/23/23 09:21
Loratadine 10 Mg Tablet PO 12/21/23 07:59 10 mg
DAILY JERZY Administration
Metformin HCl 500 mg 11/23/23 17:00
Metformin 500 Mg Regular Release Tablet PO 12/21/23 16:59
BID@0800,1700 JERZY
Metoprolol Succinate 12.5 mg 11/24/23 08:00
Metoprolol 12.5 Mg Extended Release Dose (1/2 Of 25 Mg Xl Tablet) PO 12/22/23 07:59
DAILY JERZY
Oxycodone HCl 5 mg 11/22/23 18:07 11/23/23 09:26
Oxycodone 5 Mg Regular Release Tablet PO 12/06/23 18:06 5 mg
Q4HPRN PRN Administration
moderate pain
Pancrelipase 1 capsule 11/23/23 11:30
Pancrelipase (Zenpep) Delayed Release Capsule PO 12/21/23 11:29
ACHS JERZY
Pantoprazole Sodium 40 mg 11/23/23 11:00
Pantoprazole 40 Mg Delayed Release Tablet PO 12/21/23 10:59
DAILY JERZY
Polyethylene Glycol 17 grams 11/23/23 08:00 11/23/23 09:20
Polyethylene Glycol Powder 17 Grams Packet PO 12/21/23 07:59 17 grams
DAILY JERZY Administration
Sennosides 8.6 mg 11/22/23 20:00 11/23/23 09:21
Sennosides (Senokot) 8.6 Mg Tablet PO 12/20/23 19:59 Not Given
BID JERZY
Sodium Chloride 0 flush 11/22/23 17:00
Sodium Chloride 0.9% (Flush) Syringe IV 12/20/23 16:59
PER PROTOCOL JERZY
Review of Systems
-
An ROS was performed w/ pertinent findings as per HPI.
Physical Exam
-
General: Well Developed and No Apparent Distress
HEENT: Jaundice
Cardiology: Normal Sinus Rhythm
Pulmonary: Clear
GI: Soft and Distended
Extremities: No C/C/E
Neurology: Non Focal
Labs
Lab Results
WBC 8.3 10^3/uL (4.8-10.8) 11/23/23 05:31
RBC 3.73 10^6/uL (4.20-5.40) L 11/23/23 05:31
Hgb 11.3 g/dL (12.0-16.0) L 11/23/23 05:31
Hct 32.6 % (37.0-47.0) L 11/23/23 05:31
MCV 87.4 fL (81.0-99.0) 11/23/23 05:31
MCH 30.3 pg (27.0-31.0) 11/23/23 05:31
MCHC 34.7 g/dL (33.0-37.0) 11/23/23 05:31
RDW 15.4 % (11.5-14.5) H 11/23/23 05:31
Plt Count 326 10^3/uL (130-400) 11/23/23 05:31
MPV 11.3 fL (7.4-10.4) H 11/23/23 05:31
Abs Immat Gran (auto) 0.0 10^3/uL (0-0.05) 11/23/23 05:31
Absolute Neuts (auto) 5.5 10^3/uL (1.4-6.5) 11/23/23 05:31
Absolute Lymphs (auto) 1.4 10^3/uL (1.2-3.4) 11/23/23 05:31
Absolute Monos (auto) 1.1 10^3/uL (0.1-0.6) H 11/23/23 05:31
Absolute Eos (auto) 0.2 10^3/uL (0-0.7) 11/23/23 05:31
Absolute Basos (auto) 0.1 10^3/uL (0-0.2) 11/23/23 05:31
Immature Gran % 0.2 % (0-0.5) 11/23/23 05:31
Neutrophils % 66.7 % (42.2-75.2) 11/23/23 05:31
Lymphocytes % 16.5 % (20.5-51.1) L 11/23/23 05:31
Monocytes % 12.9 % (1.7-9.3) H 11/23/23 05:31
Eosinophils % 2.9 % (0-6) 11/23/23 05:31
Basophils % 0.8 % (0-2) 11/23/23 05:31
Creatinine 0.7 mg/dL (0.6-1.0) 11/23/23 05:31
Vital Signs
Vital Signs
Temp Pulse Resp BP Pulse Ox
98.3 F 58 18 130/74 96
11/23/23 03:45 11/23/23 03:45 11/23/23 07:37 11/23/23 07:44 11/23/23 07:37
[2023-11-23] MEDS: GLUCOPHAGE 500 MG PO ×2 (11:42→16:30)
[2023-11-23] MEDS: LOVENOX 60 MG SC ×2 (11:42→20:07)
[2023-11-23] MEDS: PROTONIX 40 MG PO (11:42)
[2023-11-23 11:46] LABS: Glucose - Point of Care 243 mg/dl (70-99)
[2023-11-23] MEDS: NOVOLOG FLEXPEN-LOW RESISTANCE 2 UNITS SC ×2 (11:47→16:43)
--- NOTE | 2023-11-23 12:06 | CM ---
Patient seen at bedside with patient daughter in law, son and . Patient states that they are currently living with son and daughter in law while their new home is being built. Patient PCP is Dr. Zelaya and she uses the [place] [employer]
Patient stated that she does not have any food insecurities and that she has a walker at home. Patient plan is to return to home with no needs anticipated at this time, no VN prior to admission. Patient consult for cost of [facility] and per [employer]
cost is 47$. CM updated patient and family and provided information re coupon and programs. Patient family expressed appreciation. CM will continue to follow for discharge planning needs.
Plan; home with family vs home with VN
[2023-11-23] MEDS: ZENPEP DELAYED RELEASE CAPSULE 1 CAPSULE PO ×3 (12:31→20:07)
--- NOTE | 2023-11-23 13:06 | PTCARENOTE ---
Patient is dropping as low as 38, asymptomatic, Dr. Gay made aware.
--- NOTE | 2023-11-23 15:29 | W.PN.HOSP.TC ---
Today's Communication/Plan
-
pain control
ERCP/EUS
Assessment / Plan
Assessment / Plan
CVS: S1-S2 normal
Chest: CTA B/L
Abdomen: Soft, NT / Bowel sounds present
Extremities: No edema, normal pulses
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
Icterus
MRI/MRCP-Mass within the pancreatic head/proximal body consistent with neoplasm with associated vascular involvement and pancreatic ductal dilatation as described.
There is complex cystic change within the uncinate process measuring up to 2.1 x 1.2 x 1.4 cm, possibly representing additional dilated ducts versus separate pancreatic cystic or ductal neoplasm.
Diffuse dilatation of the intrahepatic and extrahepatic bile ducts with the common bile duct measuring up to 1.9 cm.
ECHO-Mild left ventricular hypertrophy with preserved systolic function, EF 60-65%.Mitral annular calcification, trace mitral regurgitation, thickened mitral leaflets and mildly dilated left atrium .
Mild aortic stenosis, peak/mean gradients 24/13 mmHg.Normal right heart with normal pulmonary artery systolic pressure
# Pancreatic mass
Likely malignancy with patient's weight loss, loss of appetite, painless jaundice
Markedly elevated LFTS
Needs a biliary stent to be placed .ERCP/EUS and stent placement timing per GI.
Patient does not have any symptoms of infection-no fever if develops a fever consider antibiotics initiation.
GI and oncology consultation
Add on a CA 19-9 level
# Paroxysmal atrial fibrillation
Patient had rapid A-fib in the ER currently in sinus rhythm
Patient does not report a history
Also has an aortic area murmur on exam
Echo noted
Cardiology evaluation appreciated
Low dose BB
Lovenox. Hold AM dose of Saturday if procedure planned late , hold Saturday PM dose held if early procedure.
# Hypokalemia-corrected
# Hypomagnesemia- Corrected.
# Hypertension-hold off on amlodipine continue lisinopril and add beta-mary alice
# Hyperlipidemia-hold off on atorvastatin given elevated LFTs
# Diabetes-sliding scale coverage with Accu-Cheks
Patient was on a 'diabetic pill 'for a month which was stopped recently because of her A1c came down to 7.
Added Metformin
# History of right breast cancer with mastectomy chemo and radiation 1999
# History of lung cancer on the left side with history of lobectomy in 2000
# Ee-psjwys-oquc in 2003
# History of carotid stent on the left side
# History of hemorrhagic stroke-details unclear
# Chronic right arm pain after shoulder surgery for which she is on gabapentin and hydrocodone
# DVT prophylaxis-Lovenox
# Full code
Discussed with Dr. Davidson
Discussed with nursing
Discussed with patient's at bedside
Anticipated Discharge: > 48 hours
Subjective/Interval History
-
Date of Service: November 23, 2023
Objective Data
-
Labs:
Laboratory Results
11/23/23 11/23/23 11/23/23
05:31 08:53 16:30
WBC 8.3
Hgb 11.3 L
Hct 32.6 L
Plt Count 326
APTT 135.7 H Pending
Sodium 139
Potassium 4.0
Chloride 100
Carbon Dioxide 24
BUN 24 H
Creatinine 0.7
Glucose 161 H
Calcium 10.3 H
Total Bilirubin 9.2 H
AST 320 H
ALT 162 H
Alkaline Phosphatase 1153 H
Vital Signs:
Vital Signs
Temp Pulse Resp BP Pulse Ox
97.9 F 58 16 130/65 97
11/23/23 11:53 11/23/23 03:45 11/23/23 11:53 11/23/23 14:35 11/23/23 11:53
I&O
11/22/23 11/23/23 11/24/23
06:59 06:59 06:59
Intake Total 480 / 480
Balance 480 / 480
--- NOTE | 2023-11-23 16:20 | W.PN.CARDCBS ---
Today's Communication / Plan
-
Stop metoprolol
After invasive procedures completed, start Eliquis 2.5 twice daily
Continue therapeutic Lovenox for now, keep on telemetry
Impression / Plan
-
Tile Presser: Dr. Lorenzana ([facility] Cardiology)
Impression:
Presented with abdominal swelling
Pancreatic mass, concern for malignancy
Paroxysmal atrial fibrillation - newly diagnosed
spontaneously converted to SR in ER
Hypokalemia
HTN
HLD
DM
History of R breast cancer s/p mastectomy, chemotherapy, radiation 1999
History of L lung cancer s/p lobectomy 2000
h/o carotid stenosis s/p L carotid stent
mild by echo 12/2020
h/o CVA
Former smoker
ANASTASIA, compliant w/ CPAP
Echo 01/06/2021 @[facility]: EF 50-55%, mild cLVH, mild w/ peak/mean gradients 22/14 mmHg
Echo 11/22/2023: Mild LVH, EF 60-65%, trace mitral regurgitation, thickened mitral leaflets, mildly dilated left atrium, mild aortic stenosis, peak gradient 24 mmHg, mean gradient 13 mmHg, normal right heart with normal pulmonary artery pressure
Plan:
She has had no further atrial fibrillation since admission. Is now on therapeutic dose enoxaparin rather than IV heparin, more convenient for patient.
Plan will be for initiation of DOAC, preferably Eliquis 2.5 mg twice daily given body weight and age, after invasive procedures are completed
She was bradycardic on low-dose metoprolol which has now been discontinued. Heart rates as low as 30s, mostly abnormal sinus node recovery after PAC. Because of this in the absence of recurrent atrial fibrillation would not start antiarrhythmic
agent or other rate controlling drugs which might otherwise precipitate need for pacemaker implantation.
She can follow-up to Dr. Josemanuel Lorenzana of [facility] cardiology at discharge who can determine need for monitoring, further therapy, etc. but with presumptive diagnosis of pancreatic cancer strategy should probably be conservative.
Given bradycardia we will continue to follow for now.
HPI: Sheela is an 83 year old female with PMH of pancreatic mass, HTN, HLD, DM, breast cancer, lung cancer, carotid stent, hemorrhagic stroke, and former tobacco abuse who presented to [facility] for evaluation due to abdominal swelling and abnormal
labwork. She was recently found to have a pancreatic mass and workup has been started with [facility]. She reports she was told she may need drainage/biopsy this admission. In ER, she was found to be in rapid atrial fibrillation on initial EKG. She
reports no history of atrial fibrillation, but follows with Dr. Lorenzana. She was asymptomatic with her atrial fibrillation and denies any chest pain, palpitations, dizziness, lightheadedness, LE edema, or SOB. States she felt a bit anxious coming in
to the ER, just because she was unsure what was ahead as far as management/plan for the pancreatic mass, however other than anxiety, felt well. While in ER, spontaneously converted to SR and remains in SR at this time. She states she feels no
different now than when she did when she entered the ER.
Progress Note - Tile Presser
Subjective
Date of Service: November 23, 2023:
No new complaints, abdominal MRI as below
PMH/PSH/SH/FH: Reviewed
Allergies: None to medications
Outpatient cardiac medications reviewed: Amlodipine 5 mg a day, aspirin 81 mg a day, atorvastatin 40 mg a day, furosemide 40 mg a day, lisinopril 10 mg twice daily
Current meds: Lisinopril 10 mg twice a day, Claritin, Colace, Neurontin, MiraLAX, Senokot, Lovenox SQ every 12, metformin, pantoprazole, Zenpep, metoprolol stopped for bradycardia
ROS: Negative except as above
130/65, pulse 50s down to 40s, resp 18, afebrile, head neck exam unremarkable, lungs are clear, soft BS murmur, abdomen mildly distended, extremities without edema, neuro nonfocal
Hemoglobin 11.3, BUN and creatinine 24 and 0.7 potassium 4, AST 320, ALT 162, alk phos 1153, troponin 0.024, stable
Abdominal MRI 4.1 x 2.7 x 2.3 cm mass in the head of the pancreas main duct dilated to 8 mm, mass abuts superior mesenteric artery and encases/narrows portal vein, secondary 2.1 x 1.2 x 1.4 cystic change in uncinate
Objective
Labs:
11/23/23 05:31
11/23/23 05:31
Labs
Hgb 11.3 g/dL (12.0-16.0) L 11/23/23 05:31
Hct 32.6 % (37.0-47.0) L 11/23/23 05:31
Plt Count 326 10^3/uL (130-400) 11/23/23 05:31
APTT 135.7 Sec (23.4-35.0) H 11/23/23 08:53
Sodium 139 mmol/L (135-145) 11/23/23 05:31
Potassium 4.0 mmol/L (3.5-5.1) 11/23/23 05:31
BUN 24 mg/dl (7-17) H 11/23/23 05:31
Creatinine 0.7 mg/dL (0.6-1.0) 11/23/23 05:31
Glucose 161 mg/dl (70-99) H 11/23/23 05:31
Troponins
11/22/23 11/23/23 11/23/23
18:46 01:12 08:53
Troponin I 0.020 0.033 D 0.024 D
Vital Signs and I&O:
Vital Signs
Temp Pulse Resp BP Pulse Ox
36.8 C 58 18 130/65 96
11/23/23 15:52 11/23/23 03:45 11/23/23 15:52 11/23/23 14:35 11/23/23 15:52
Vital Signs
Temp Pulse Resp BP Pulse Ox
36.8 C 58 18 130/65 96
11/23/23 15:52 11/23/23 03:45 11/23/23 15:52 11/23/23 14:35 11/23/23 15:52
Intake & Output
11/21/23 11/22/23 11/23/23 11/24/23
07:59 07:59 07:59 07:59
Intake Total 480 / 480
Balance 480 / 480
Physical Exam
Physical Exam
See above
[2023-11-23 16:41] LABS: Glucose - Point of Care 206 mg/dl (70-99)
[2023-11-23] MEDS: COLACE 100 MG PO (20:07)
[2023-11-23] MEDS: SENOKOT 8.59999999999999964 MG PO (20:07)
[2023-11-23 22:02] LABS: Glucose - Point of Care 197 mg/dl (70-99)
[2023-11-24] VITALS (8 sets, daily range): BP systolic 108–206; BP diastolic 51–95; BMI 22.9
[2023-11-24 07:42] LABS: Glucose - Point of Care 180 mg/dl (70-99)
[2023-11-24] MEDS: GLUCOPHAGE 500 MG PO ×2 (07:52→16:29)
[2023-11-24] MEDS: CLARITIN 10 MG PO (07:52)
[2023-11-24] MEDS: MIRALAX 17 GRAMS PO (07:52)
[2023-11-24] MEDS: ROXICODONE 5 MG PO ×4 (07:52→21:43)
[2023-11-24] MEDS: ZENPEP DELAYED RELEASE CAPSULE 1 CAPSULE PO ×4 (07:52→21:43)
[2023-11-24] MEDS: NEURONTIN 100 MG PO ×3 (07:52→21:43)
[2023-11-24] MEDS: ZESTRIL 10 MG PO (07:52)
[2023-11-24] MEDS: COLACE PO ×2 (07:53→20:34)
[2023-11-24] MEDS: LOVENOX 60 MG SC ×2 (07:53→20:38)
[2023-11-24] MEDS: NOVOLOG FLEXPEN-LOW RESISTANCE 1 UNITS SC (07:53)
[2023-11-24] MEDS: SENOKOT PO ×2 (07:54→20:34)
[2023-11-24] MEDS: PROTONIX 40 MG PO (07:56)
[2023-11-24 08:15] LABS: INR 1.77; PT 20.5 Sec (11.4-14.6)
[2023-11-24 08:50] LABS: ALT (SGPT) 201 U/L (0-35); AST (SGOT) 395 U/L (14-36); Albumin 3.4 g/dl (3.5-5.0); Blood Urea Nitrogen 21 mg/dl (7-17); Calcium 10.2 mg/dl (8.4-10.2); Carbon Dioxide 28 mmol/L (22-30); Chloride 100 mmol/L (98-107); Direct Bilirubin 9.3 mg/dl (0.0-0.4); Estimated Creatinine Clearance 47 ml/min; Glucose 157 mg/dl (70-99); Sodium 136 mmol/L (135-145); Total Bilirubin 10.9 mg/dl (0.2-1.3); Total Protein 6.9 g/dl (6.3-8.2); eGFR > 60.00
--- NOTE | 2023-11-24 08:58 | W.PN.GI.CBS2 ---
Today's Communication / Plan
-
C/w diet
Hold order placed so last dose of Lovenox will be 11/24 at 11an
Anticipate ERCP/EUS on with Dr Nash
Will follow with you
Assessment / Plan
-
Sheela is an 83yo W with h/o breast cancer and lung cancer followed by Dr Mayfield sent to ED from [place] for abnormal CT at [place] with pancreatic mass. She also reports jaundice for past 2 wks and new diabetes diagnosed 2 months ago.
Her sister had pancreatic cancer
Impression
- Painless jaundice
- Pancreatic head mass with vascular involvement and CBD dilation 1.9cm on MRI 11/22
- New afib
- h/o lung cancer
- h/o breast cancer
- CVA
- DM
- ANASTASIA
Recommendation
- Tolerating DM low fat diet
- Ok for lovenox now. Anticipate last dose Saturday AM for EUS/ERCP on Saturday with Dr Nash
- I did d/w pt that GI procedure timing is subject to change depending on acuity of other cases over holiday weekend
- Serial LFTs
- Started creon 11/22
Will follow with you.
Subjective
Subjective
Date of Service: November 24, 2023
She passed solid BM yesterday and today. Still feeling bloated. Ambulating hallway. Tolerating Low fat diet
Objective
Data Reviewed
Laboratory Data:
Laboratory Results
11/23/23 05:31
11/24/23 07:36
Laboratory Results
PT 20.5 Sec (11.4-14.6) H 11/24/23 07:36
INR 1.77 11/24/23 07:36
APTT Cancelled 11/23/23 16:30
Magnesium 1.6 mg/dl (1.6-2.3) 11/23/23 05:31
Total Bilirubin 10.9 mg/dl (0.2-1.3) H 11/24/23 07:36
AST 395 U/L (14-36) H 11/24/23 07:36
ALT 201 U/L (0-35) H 11/24/23 07:36
Alkaline Phosphatase 1153 U/L (38-126) H 11/23/23 05:31
Lipase 157 U/L (23-300) 11/22/23 13:47
Vital Signs and I&O:
Vital Signs
Temp Pulse Resp BP Pulse Ox
98.6 F 56 18 206/76 95
11/24/23 08:28 11/24/23 08:28 11/24/23 08:28 11/24/23 08:28 11/24/23 08:28
I&O
11/23/23 11/24/23 11/25/23
06:59 06:59 06:59
Intake Total 480 / 480 350 / 350
Balance 480 / 480 350 / 350
Physical Exam
Physical Exam
GEN: No acute distress, conversant, pleasant
HEENT: +icteric, extraocular movements intact, clear oropharynx without exudates
GI: soft, mildly-distended, not tender to palpation, normal active bowel sounds, no hepatosplenomegaly
EXT: warm, well perfused, trace edema bilaterally, jaundiced
NEURO: AAOx3, non-focal
[2023-11-24 09:07] LABS: Alkaline Phosphatase 1194 U/L (38-126)
[2023-11-24 12:08] LABS: Glucose - Point of Care 232 mg/dl (70-99)
[2023-11-24] MEDS: NOVOLOG FLEXPEN-LOW RESISTANCE 2 UNITS SC ×2 (12:15→16:35)
--- NOTE | 2023-11-24 12:28 | CM ---
Per chart review patient for ERCP on saturday. Patient plan is home with family. CM will continue to follow for discharge planning needs.
Plan; home with VN vs home with no needs.
--- NOTE | 2023-11-24 12:29 | W.PN.CARDCBS ---
Today's Communication / Plan
-
Continue Lovenox
No intervention required for pauses/bradycardia
Start Eliquis after pancreatic biopsy
Increase lisinopril to 20 mg twice daily for hypertension
Impression / Plan
-
Auto Engine Mechanic: Dr. Lorenzana ([facility] Cardiology)
Impression:
Presented with abdominal swelling
Pancreatic mass, concern for malignancy
Paroxysmal atrial fibrillation - newly diagnosed
spontaneously converted to SR in ER
Hypokalemia
HTN
HLD
DM
History of R breast cancer s/p mastectomy, chemotherapy, radiation 1999
History of L lung cancer s/p lobectomy 2000
h/o carotid stenosis s/p L carotid stent
mild by echo 12/2020
h/o CVA
Former smoker
ANASTASIA, compliant w/ CPAP
Echo 01/06/2021 @[facility]: EF 50-55%, mild cLVH, mild w/ peak/mean gradients 22/14 mmHg
Echo 11/22/2023: Mild LVH, EF 60-65%, trace mitral regurgitation, thickened mitral leaflets, mildly dilated left atrium, mild aortic stenosis, peak gradient 24 mmHg, mean gradient 13 mmHg, normal right heart with normal pulmonary artery pressure
Plan:
She is stable from a cardiac standpoint. She still has episodes of bradycardia and pauses close to 3 seconds in length. She remains asymptomatic. These pauses usually occur following a PAC, suggesting sinus node dysfunction, but she also has a
junctional escape, and pauses are less than 3 seconds so in the absence of symptoms nothing is required.
Continue Lovenox. Would start Eliquis 2.5 mg twice daily after her endoscopic biopsy on Saturday.
Continue to withhold metoprolol.
She is hypertensive, will increase lisinopril to 20 mg twice daily.
Outpatient follow-up will be with Dr. Josemanuel Lorenzana who knows her well.
HPI: Sheela is an 83 year old female with PMH of pancreatic mass, HTN, HLD, DM, breast cancer, lung cancer, carotid stent, hemorrhagic stroke, and former tobacco abuse who presented to [facility] for evaluation due to abdominal swelling and abnormal
labwork. She was recently found to have a pancreatic mass and workup has been started with [place]. She reports she was told she may need drainage/biopsy this admission. In ER, she was found to be in rapid atrial fibrillation on initial EKG. She
reports no history of atrial fibrillation, but follows with Dr. Lorenzana. She was asymptomatic with her atrial fibrillation and denies any chest pain, palpitations, dizziness, lightheadedness, LE edema, or SOB. States she felt a bit anxious coming in
to the ER, just because she was unsure what was ahead as far as management/plan for the pancreatic mass, however other than anxiety, felt well. While in ER, spontaneously converted to SR and remains in SR at this time. She states she feels no
different now than when she did when she entered the ER.
Progress Note - Auto Engine Mechanic
Subjective
Date of Service: November 24, 2023:
PMH/PSH/FH/SH reviewed
Allergies: None to medications
Home medications: Reviewed cardiac meds included amlodipine 5 mg a day, aspirin 81 mg a day atorvastatin 40 mg a day, furosemide 40 mg a day, lisinopril 10 mg twice daily
Current medications therapeutic Lovenox, Claritin, lisinopril 10 mg twice daily, Neurontin, MiraLAX, pantoprazole, Zenpep
ROS: Negative except as above
Pulse 56, 206/76, 159/75, no distress, head neck exam unremarkable, lungs are clear, aortic stenosis murmur, abdomen somewhat distended, extremities without edema, neuro nonfocal
EKG yesterday evening sinus bradycardia, LVH, cannot exclude anterior infarct with certainty
BUN/creatinine 21 and 0.7, potassium 4
Objective
Labs:
11/23/23 05:31
11/24/23 07:36
Labs
Hgb 11.3 g/dL (12.0-16.0) L 11/23/23 05:31
Hct 32.6 % (37.0-47.0) L 11/23/23 05:31
Plt Count 326 10^3/uL (130-400) 11/23/23 05:31
PT 20.5 Sec (11.4-14.6) H 11/24/23 07:36
INR 1.77 11/24/23 07:36
APTT Cancelled 11/23/23 16:30
Sodium 136 mmol/L (135-145) 11/24/23 07:36
Potassium 4.0 mmol/L (3.5-5.1) 11/24/23 07:36
BUN 21 mg/dl (7-17) H 11/24/23 07:36
Creatinine 0.7 mg/dL (0.6-1.0) 11/24/23 07:36
Glucose 157 mg/dl (70-99) H 11/24/23 07:36
Troponins
11/22/23 11/23/23 11/23/23
18:46 01:12 08:53
Troponin I 0.020 0.033 D 0.024 D
Vital Signs and I&O:
Vital Signs
Temp Pulse Resp BP Pulse Ox
37.0 C 56 18 95
11/24/23 08:28 11/24/23 08:28 11/24/23 08:28 11/24/23 08:28 11/24/23 08:28
Vital Signs
Temp Pulse Resp BP Pulse Ox
37.0 C 56 18 95
11/24/23 08:28 11/24/23 08:28 11/24/23 08:28 11/24/23 08:28 11/24/23 08:28
Intake & Output
11/22/23 11/23/23 11/24/23 11/25/23
07:59 07:59 07:59 07:59
Intake Total 480 / 480 350 / 350
Balance 480 / 480 350 / 350
Physical Exam
Physical Exam
See above
--- NOTE | 2023-11-24 15:05 | W.PN.HOSP.TC ---
Today's Communication/Plan
-
ERCP/EUS
Assessment / Plan
Assessment / Plan
CVS: S1-S2 normal
Chest: CTA B/L
Abdomen: Soft, NT / Bowel sounds present
Extremities: No edema, normal pulses
CUSTOMER ENERGY SPECIALIST: Non focal exam
Icterus
MRI/MRCP-Mass within the pancreatic head/proximal body consistent with neoplasm with associated vascular involvement and pancreatic ductal dilatation as described.
There is complex cystic change within the uncinate process measuring up to 2.1 x 1.2 x 1.4 cm, possibly representing additional dilated ducts versus separate pancreatic cystic or ductal neoplasm.
Diffuse dilatation of the intrahepatic and extrahepatic bile ducts with the common bile duct measuring up to 1.9 cm.
ECHO-Mild left ventricular hypertrophy with preserved systolic function, EF 60-65%.Mitral annular calcification, trace mitral regurgitation, thickened mitral leaflets and mildly dilated left atrium .
Mild aortic stenosis, peak/mean gradients 24/13 mmHg.Normal right heart with normal pulmonary artery systolic pressure
# Pancreatic mass
Likely malignancy with patient's weight loss, loss of appetite, painless jaundice
Markedly elevated LFTS
Needs a biliary stent to be placed .ERCP/EUS and stent placement timing per GI.
Patient does not have any symptoms of infection-no fever if develops a fever consider antibiotics initiation.
GI and oncology consultation appreciated.
CA 19-9 level pending
# Paroxysmal atrial fibrillation
Patient had rapid A-fib in the ER currently in sinus rhythm
Patient does not report a history
Also has an aortic area murmur on exam
Echo noted
Cardiology evaluation appreciated
Low dose BB stopped due to pauses/Lebron
Lovenox.
# Hypokalemia-corrected
# Hypomagnesemia- Corrected.
# Hypertension-hold off on amlodipine continue lisinopril and add beta-mary alice
# Hyperlipidemia-hold off on atorvastatin given elevated LFTs
# Diabetes-sliding scale coverage with CytoVivauMIG [place]
Patient was on a 'diabetic pill 'for a month which was stopped recently because of her A1c came down to 7.
Added Metformin
# History of right breast cancer with mastectomy chemo and radiation 1999
# History of lung cancer on the left side with history of lobectomy in 2000
# Ry-rxmvky-plam in 2003
# History of carotid stent on the left side
# History of hemorrhagic stroke-details unclear
# Chronic right arm pain after shoulder surgery for which she is on gabapentin and hydrocodone
# DVT prophylaxis-Lovenox
# Full code
Discussed with Cards
Discussed with nursing
Discussed with patient's , son and DIL
Anticipated Discharge: 24 - 48 hours
Subjective/Interval History
-
Date of Service: November 24, 2023
Objective Data
-
Labs:
Laboratory Results
11/24/23
07:36
PT 20.5 H
INR 1.77
Sodium 136
Potassium 4.0
Chloride 100
Carbon Dioxide 28
BUN 21 H
Creatinine 0.7
Glucose 157 H
Calcium 10.2
Total Bilirubin 10.9 H
AST 395 H
ALT 201 H
Alkaline Phosphatase 1194 H
Vital Signs:
Vital Signs
Temp Pulse Resp BP Pulse Ox
98.5 F 52 18 156/95 96
11/24/23 12:47 11/24/23 12:47 11/24/23 12:47 11/24/23 12:47 11/24/23 12:47
I&O
11/23/23 11/24/23 11/25/23
06:59 06:59 06:59
Intake Total 480 / 480 350 / 350
Balance 480 / 480 350 / 350
--- NOTE | 2023-11-24 15:43 | W.PN.ONC ---
Today's Communication / Plan
-
EGD/EUS w/ ERCP w/ GI this week
await pathology
Ca 19-9 pending
Impression
Impression
painless jaundice
pancreatic head mass w/ ductal dilatation
h/o lung cancer
h/o breast cancer
paroxysmal afib
Plan
Plan
1. Pancreatic head mass - ductal dilatation - painless jaundice
-GI consulted - EGD/ EUS w/ ERCP possible stent this week
-w/ vascular involvement on MRI
-additional staging studies will need to be performed - PET/CT as outpt
-Ca 19-9 checked as outpt - pending
-await pathology
will continue to follow with you
Subjective/Objective
Subjective/Objective
feels decent - no pain. some bloating.
Vital Signs:
Vital Signs
Temp Pulse Resp BP Pulse Ox
98.5 F 52 18 156/95 96
11/24/23 12:47 11/24/23 12:47 11/24/23 12:47 11/24/23 12:47 11/24/23 12:47
Lab Results:
Laboratory Data
WBC 8.3 10^3/uL (4.8-10.8) 11/23/23 05:31
Hgb 11.3 g/dL (12.0-16.0) L 11/23/23 05:31
Plt Count 326 10^3/uL (130-400) 11/23/23 05:31
PT 20.5 Sec (11.4-14.6) H 11/24/23 07:36
INR 1.77 11/24/23 07:36
APTT Cancelled 11/23/23 16:30
eGFR > 60.00 11/24/23 07:36
Exam: unchanged
[2023-11-24 16:36] LABS: Glucose - Point of Care 219 mg/dl (70-99)
[2023-11-24] MEDS: ZESTRIL 20 MG PO (20:37)
[2023-11-24 21:10] LABS: Glucose - Point of Care 160 mg/dl (70-99)
[2023-11-25] VITALS (8 sets, daily range): BP systolic 112–190; BP diastolic 58–78; BMI 23.2
--- NOTE | 2023-11-25 04:53 | PTCARENOTE ---
Pts BPs high throughout the night- House DIETARY AID aware, no new orders.
--- NOTE | 2023-11-25 06:08 | W.PN.HOSP.TC ---
Today's Communication/Plan
-
NPO after midnight for ERCP/EUS stent
Lovenox hold as per GI
cont sliding scale
BP, pain control
Assessment / Plan
Assessment / Plan
Physical Exam
General: No acute distress appears comfortable, jaundice
HEENT: Normocephalic Atraumatic PERRLA scleral icterus
CVS: S1-S2 normal
Chest: CTA B/L
Abdomen: Soft, NT / Bowel sounds present
Extremities: No edema, normal pulses
MEDICAL TECHNOLOGIST CLINICAL: AOx3
MRI/MRCP-Mass within the pancreatic head/proximal body consistent with neoplasm with associated vascular involvement and pancreatic ductal dilatation as described.
There is complex cystic change within the uncinate process measuring up to 2.1 x 1.2 x 1.4 cm, possibly representing additional dilated ducts versus separate pancreatic cystic or ductal neoplasm.
Diffuse dilatation of the intrahepatic and extrahepatic bile ducts with the common bile duct measuring up to 1.9 cm.
ECHO-Mild left ventricular hypertrophy with preserved systolic function, EF 60-65%.Mitral annular calcification, trace mitral regurgitation, thickened mitral leaflets and mildly dilated left atrium .
Mild aortic stenosis, peak/mean gradients 24/13 mmHg.Normal right heart with normal pulmonary artery systolic pressure
# Pancreatic mass
Likely malignancy with patient's weight loss, loss of appetite, painless jaundice
Markedly elevated LFTS
Needs a biliary stent to be placed .ERCP/EUS and stent placement planned for tomorrow 11/25 npo after midnight
Patient does not have any symptoms of infection-no fever if develops a fever consider antibiotics initiation.
GI and oncology consultation appreciated.
CA 19-9 level high 16,850
# Paroxysmal atrial fibrillation
Patient had rapid A-fib in the ER currently in sinus rhythm
Patient does not report a history
Also has an aortic area murmur on exam
Echo noted
Cardiology evaluation appreciated
Low dose BB stopped due to pauses/Lebron
Lovenox.
# Hypokalemia-corrected
# Hypomagnesemia- Corrected.
# Hypertension-hold off on amlodipine continue lisinopril and add beta-mary alice
# Hyperlipidemia-hold off on atorvastatin given elevated LFTs
# Diabetes-sliding scale coverage with Accu-Cheks
Patient was on a 'diabetic pill 'for a month which was stopped recently because of her A1c came down to 7.
Added Metformin
# History of right breast cancer with mastectomy chemo and radiation 1999
# History of lung cancer on the left side with history of lobectomy in 2000
# Ll-bagnrx-rdha in 2003
# History of carotid stent on the left side
# History of hemorrhagic stroke-details unclear
# Chronic right arm pain after shoulder surgery for which she is on gabapentin and hydrocodone
# DVT prophylaxis-Lovenox
# Full code
discussed with patient and patient's over phone.
I spent a total of 55 minutes with the patient or on the floor. More than 50% of this time involved counseling and coordination of care.
Anticipated Discharge: 24 - 48 hours
Subjective/Interval History
-
Date of Service: November 25, 2023
No acute distress sitting up comfortably in chair. Telemonitor notes bradycardia but patient otherwise asymptomatic. BP stable. Denies lightheadedness. Reports poor appetite.
Objective Data
-
Labs:
Laboratory Results
11/25/23
06:00
Sodium Pending
Potassium Pending
Chloride Pending
Carbon Dioxide Pending
BUN Pending
Creatinine Pending
Glucose Pending
Calcium Pending
Total Bilirubin Pending
AST Pending
ALT Pending
Alkaline Phosphatase Pending
Vital Signs:
Vital Signs
Temp Pulse Resp BP Pulse Ox
98.6 F 57 18 172/74 99
11/25/23 03:33 11/25/23 03:33 11/25/23 03:33 11/25/23 03:41 11/25/23 03:33
I&O
11/23/23 11/24/23 11/25/23
06:59 06:59 06:59
Intake Total 480 / 480 350 / 350 580 / 580
Output Total
Balance 480 / 480 350 / 350 577 / 577
[2023-11-25 06:44] LABS: CA 19-9 16850 U/mL (<=35)
--- NOTE | 2023-11-25 08:49 | W.PN.CARDCBS ---
Today's Communication / Plan
-
Planning for endoscopic biopsy Saturday
Impression / Plan
-
Transport Nurse: Dr. Lorenzana ([facility])
Impression:
Presented with abdominal swelling
Pancreatic mass, concern for malignancy
Paroxysmal atrial fibrillation - newly diagnosed
spontaneously converted to SR in ER
Hypokalemia
HTN
HLD
DM
History of R breast cancer s/p mastectomy, chemotherapy, radiation 1999
History of L lung cancer s/p lobectomy 2000
h/o carotid stenosis s/p L carotid stent
mild by echo 12/2020
h/o CVA
Former smoker
ANASTASIA, compliant w/ CPAP
Echo 01/06/2021 @[facility]: EF 50-55%, mild cLVH, mild w/ peak/mean gradients 22/14 mmHg
Echo 11/22/2023: Mild LVH, EF 60-65%, trace mitral regurgitation, thickened mitral leaflets, mildly dilated left atrium, mild aortic stenosis, peak gradient 24 mmHg, mean gradient 13 mmHg, normal right heart with normal pulmonary artery pressure
Plan:
She is stable from a cardiac standpoint. She still has episodes of bradycardia and pauses close to 3 seconds in length. She remains asymptomatic. These pauses usually occur following a PAC, suggesting sinus node dysfunction, but she also has a
junctional escape, and pauses are less than 3 seconds so in the absence of symptoms nothing is required. Overall she has relatively little symptoms from her atrial fibrillation and tolerates. Given the overall scope of her other medical issues
will be reasonable to observe and eventual oral anticoagulation after biopsy.
Continue Lovenox. Would start Eliquis 2.5 mg twice daily after her endoscopic biopsy on Saturday.
Continue to withhold metoprolol.
She is hypertensive, continue lisinopril to 20 mg twice daily.
Outpatient follow-up will be with Dr. Josemanuel Lorenzana who knows her well.
HPI: Sheela is an 83 year old female with PMH of pancreatic mass, HTN, HLD, DM, breast cancer, lung cancer, carotid stent, hemorrhagic stroke, and former tobacco abuse who presented to [facility] for evaluation due to abdominal swelling and abnormal
labwork. She was recently found to have a pancreatic mass and workup has been started with [place]. She reports she was told she may need drainage/biopsy this admission. In ER, she was found to be in rapid atrial fibrillation on initial EKG. She
reports no history of atrial fibrillation, but follows with Dr. Lorenzana. She was asymptomatic with her atrial fibrillation and denies any chest pain, palpitations, dizziness, lightheadedness, LE edema, or SOB. States she felt a bit anxious coming in
to the ER, just because she was unsure what was ahead as far as management/plan for the pancreatic mass, however other than anxiety, felt well. While in ER, spontaneously converted to SR and remains in SR at this time. She states she feels no
different now than when she did when she entered the ER.
Progress Note - Transport Nurse
Subjective
Date of Service: November 25, 2023
Total Time Spent with Patient (in minutes): Feels well this morning
Objective
Labs:
11/23/23 05:31
Labs
Hgb 11.3 g/dL (12.0-16.0) L 11/23/23 05:31
Hct 32.6 % (37.0-47.0) L 11/23/23 05:31
Plt Count 326 10^3/uL (130-400) 11/23/23 05:31
PT 20.5 Sec (11.4-14.6) H 11/24/23 07:36
INR 1.77 11/24/23 07:36
APTT Cancelled 11/23/23 16:30
Sodium 136 mmol/L (135-145) 11/24/23 07:36
Potassium 4.0 mmol/L (3.5-5.1) 11/24/23 07:36
BUN 21 mg/dl (7-17) H 11/24/23 07:36
Creatinine 0.7 mg/dL (0.6-1.0) 11/24/23 07:36
Glucose 157 mg/dl (70-99) H 11/24/23 07:36
Troponins
11/22/23 11/23/23 11/23/23
18:46 01:12 08:53
Troponin I 0.020 0.033 D 0.024 D
Vital Signs and I&O:
Vital Signs
Temp Pulse Resp BP Pulse Ox
98.6 F 57 18 172/74 99
11/25/23 03:33 11/25/23 03:33 11/25/23 03:33 11/25/23 03:41 11/25/23 03:33
Vital Signs
Temp Pulse Resp BP Pulse Ox
98.6 F 57 18 172/74 99
11/25/23 03:33 11/25/23 03:33 11/25/23 03:33 11/25/23 03:41 11/25/23 03:33
Intake & Output
11/23/23 11/24/23 11/25/23 11/26/23
06:59 06:59 06:59 06:59
Intake Total 480 / 480 350 / 350 580 / 580
Output Total 3 / 3
Balance 480 / 480 350 / 350 577 / 577
Physical Exam
Physical Exam
Physical Exam
General: no apparent distress, not acutely ill
Neck: supple. no meningeal signs. normal psoterior pharynx
Heart: s1/s2 regular rate and rhythm, no murmur. equal radial pulses.
Lungs: no acute respiratory distress. clear bilaterally
Abdomen: normal bowel sounds. not tender. no CVAT
Neuro: alert and oriented. no focal neurological deficits
Skin: no rash
Psychiatric: well kept. interactive and cooperative
Extremities: no edema. no calf tenderness. negative homans. good distal pulses
[2023-11-25 08:52] LABS: Glucose - Point of Care 173 mg/dl (70-99)
[2023-11-25] MEDS: ZENPEP DELAYED RELEASE CAPSULE 1 CAPSULE PO ×4 (08:57→21:29)
[2023-11-25] MEDS: NOVOLOG FLEXPEN-LOW RESISTANCE 1 UNITS SC ×3 (09:00→17:00)
[2023-11-25] MEDS: CLARITIN 10 MG PO (09:03)
[2023-11-25] MEDS: NEURONTIN 100 MG PO ×3 (09:04→21:29)
[2023-11-25] MEDS: SENOKOT PO ×2 (09:04→19:46)
[2023-11-25] MEDS: COLACE PO ×2 (09:04→19:46)
[2023-11-25] MEDS: PROTONIX 40 MG PO (09:04)
[2023-11-25] MEDS: LOVENOX 60 MG SC (09:04)
[2023-11-25] MEDS: MIRALAX 17 GRAMS PO (09:04)
[2023-11-25] MEDS: GLUCOPHAGE 500 MG PO ×2 (09:04→17:00)
[2023-11-25] MEDS: ZESTRIL 20 MG PO ×2 (09:05→20:03)
[2023-11-25] MEDS: ROXICODONE 5 MG PO ×3 (09:11→21:29)
[2023-11-25 10:04] LABS: ALT (SGPT) 237 U/L (0-35); AST (SGOT) 406 U/L (14-36); Albumin 3.9 g/dl (3.5-5.0); Blood Urea Nitrogen 19 mg/dl (7-17); Calcium 10.7 mg/dl (8.4-10.2); Carbon Dioxide 29 mmol/L (22-30); Chloride 99 mmol/L (98-107); Estimated Creatinine Clearance 47 ml/min; Glucose 207 mg/dl (70-99); Sodium 138 mmol/L (135-145); Total Bilirubin 13.2 mg/dl (0.2-1.3); Total Protein 8.1 g/dl (6.3-8.2); eGFR > 60.00
[2023-11-25 10:11] LABS: Alkaline Phosphatase 1173 U/L (38-126)
[2023-11-25 12:25] LABS: Glucose - Point of Care 179 mg/dl (70-99)
--- NOTE | 2023-11-25 14:12 | W.PN.GI.CBS2 ---
Today's Communication / Plan
-
NPO at [facility] for EUS/ERCP with stent tomorrow
Hold lovenox
Assessment / Plan
-
Sheela is an 83yo W with h/o breast cancer and lung cancer followed by Dr Mayfield sent to ED from [place] for abnormal CT at [facility] with pancreatic mass. She also reports jaundice for past 2 wks and new diabetes diagnosed 2 months ago.
Her sister had pancreatic cancer
Impression
- Painless jaundice
- Pancreatic head mass with vascular involvement and CBD dilation 1.9cm on MRI 11/22
- New afib
- h/o lung cancer
- h/o breast cancer
- CVA
- DM
- ANASTASIA
Recommendation
- Tolerating DM low fat diet, NPO at [facility]
- Plan for EUS/ERCP tomorrow. Case d/w Dr Nash
- Stop lovenox
- Serial LFTs
- Started pancreatic enzymes 11/22
Will follow with you.
Subjective
Subjective
Date of Service: November 25, 2023
She is tolerating diet. Abd bloating. Denies nausea/vomiting
Objective
Data Reviewed
Laboratory Data:
Laboratory Results
11/23/23 05:31
11/25/23 09:42
Laboratory Results
PT 20.5 Sec (11.4-14.6) H 11/24/23 07:36
INR 1.77 11/24/23 07:36
APTT Cancelled 11/23/23 16:30
Magnesium 1.6 mg/dl (1.6-2.3) 11/23/23 05:31
Total Bilirubin 13.2 mg/dl (0.2-1.3) H 11/25/23 09:42
AST 406 U/L (14-36) H 11/25/23 09:42
ALT 237 U/L (0-35) H 11/25/23 09:42
Alkaline Phosphatase 1173 U/L (38-126) H 11/25/23 09:42
Lipase 157 U/L (23-300) 11/22/23 13:47
Vital Signs and I&O:
Vital Signs
Temp Pulse Resp BP Pulse Ox
98.4 F 60 16 143/61 100
11/25/23 11:15 11/25/23 11:15 11/25/23 11:15 11/25/23 11:15 11/25/23 08:55
I&O
11/24/23 11/25/23 11/26/23
06:59 06:59 06:59
Intake Total 350 / 350 580 / 580
Output Total 3 / 3
Balance 350 / 350 577 / 577
Physical Exam
Physical Exam
GEN: No acute distress, conversant, pleasant jaundiced OOB in chair
HEENT: +icteric, extraocular movements intact, clear oropharynx without exudates
GI: soft, milldy-distended, not tender to palpation, normal active bowel sounds, no hepatosplenomegaly
EXT: warm, well perfused, trace edema bilaterally
NEURO: AAOx3, non-focal
--- NOTE | 2023-11-25 16:18 | PTCARENOTE ---
monitor technician frequently alarming for HR in 30's. Pt is asymptomatic and HR almost instantly increases back to [address] Lynn made aware.
[2023-11-25 16:49] LABS: Glucose - Point of Care 169 mg/dl (70-99)
[2023-11-25 21:52] LABS: Glucose - Point of Care 194 mg/dl (70-99)
[2023-11-26] VITALS (20 sets, daily range): BP systolic 101–224; BP diastolic 49–100; PULSE 66; O2SAT 97; BMI 23.1
[2023-11-26] MEDS: ROXICODONE 5 MG PO ×3 (05:39→19:52)
[2023-11-26 07:09] LABS: Glucose - Point of Care 181 mg/dl (70-99)
--- NOTE | 2023-11-26 07:16 | W.PN.HOSP.TC ---
Today's Communication/Plan
-
NPO for ERCP/EUS with GI today
Lovenox hold as per GI
cont sliding scale
BP, pain control
Assessment / Plan
Assessment / Plan
Physical Exam
General: No acute distress appears comfortable, jaundice
HEENT: Normocephalic Atraumatic PERRLA scleral icterus
CVS: S1-S2 normal
Chest: CTA B/L
Abdomen: Soft, NT / Bowel sounds present
Extremities: No edema, normal pulses
NEURO INTENSIVIST PHYSICIAN: AOx3
MRI/MRCP-Mass within the pancreatic head/proximal body consistent with neoplasm with associated vascular involvement and pancreatic ductal dilatation as described.
There is complex cystic change within the uncinate process measuring up to 2.1 x 1.2 x 1.4 cm, possibly representing additional dilated ducts versus separate pancreatic cystic or ductal neoplasm.
Diffuse dilatation of the intrahepatic and extrahepatic bile ducts with the common bile duct measuring up to 1.9 cm.
ECHO-Mild left ventricular hypertrophy with preserved systolic function, EF 60-65%.Mitral annular calcification, trace mitral regurgitation, thickened mitral leaflets and mildly dilated left atrium .
Mild aortic stenosis, peak/mean gradients 24/13 mmHg.Normal right heart with normal pulmonary artery systolic pressure
# Pancreatic mass
Likely malignancy with patient's weight loss, loss of appetite, painless jaundice
Markedly elevated LFTS
Needs a biliary stent to be placed .ERCP/EUS and stent placement today 11/25 npo
Patient does not have any symptoms of infection-no fever if develops a fever consider antibiotics initiation.
GI and oncology consultation appreciated.
CA 19-9 level high 16,850
# Paroxysmal atrial fibrillation
Patient had rapid A-fib in the ER currently in sinus rhythm
Patient does not report a history
Also has an aortic area murmur on exam
Echo noted
Cardiology evaluation appreciated
Low dose BB stopped due to pauses/Lebron
Lovenox.
# Hypokalemia-corrected
# Hypomagnesemia- Corrected.
# Hypertension-hold off on amlodipine continue lisinopril and add beta-mary alice
# Hyperlipidemia-hold off on atorvastatin given elevated LFTs
# Diabetes-sliding scale coverage with Accu-Cheks
Patient was on a 'diabetic pill 'for a month which was stopped recently because of her A1c came down to 7.
Added Metformin
# History of right breast cancer with mastectomy chemo and radiation 1999
# History of lung cancer on the left side with history of lobectomy in 2000
# Sm-moasbr-ddfw in 2003
# History of carotid stent on the left side
# History of hemorrhagic stroke-details unclear
# Chronic right arm pain after shoulder surgery for which she is on gabapentin and hydrocodone
# DVT prophylaxis-Lovenox
# Full code
discussed with patient and patient's
I spent a total of 55 minutes with the patient or on the floor. More than 50% of this time involved counseling and coordination of care.
Anticipated Discharge: 24 - 48 hours
Subjective/Interval History
-
Date of Service: November 26, 2023
no acute distress. comfortable
Objective Data
-
Labs:
Laboratory Results
11/26/23
07:15
WBC Pending
Hgb Pending
Hct Pending
Plt Count Pending
Sodium Pending
Potassium Pending
Chloride Pending
Carbon Dioxide Pending
BUN Pending
Creatinine Pending
Glucose Pending
Calcium Pending
Total Bilirubin Pending
AST Pending
ALT Pending
Alkaline Phosphatase Pending
Vital Signs:
Vital Signs
Temp Pulse Resp BP Pulse Ox
98.6 F 60 18 105/68 97
11/26/23 05:37 11/26/23 05:37 11/26/23 05:37 11/26/23 05:37 11/26/23 05:37
I&O
11/25/23 11/26/23 11/27/23
06:59 06:59 06:59
Intake Total 580 / 580 480 / 480
Output Total
Balance 577 / 577 480 / 480
[2023-11-26 08:17] LABS: Hemoglobin 10.5 g/dL (12.0-16.0); Mean Corp Hgb Conc. 33.9 g/dL (33.0-37.0); Mean Corpuscular Hgb 30.7 pg (27.0-31.0); Mean Corpuscular Volume 90.6 fL (81.0-99.0); Mean Platelet Volume 11.6 fL (7.4-10.4); Platelet Count 310 10^3/uL (130-400); Red Blood Cell Count 3.42 10^6/uL (4.20-5.40); Red Cell Dist. Width 14.7 % (11.5-14.5)
[2023-11-26 08:50] LABS: ALT (SGPT) 199 U/L (0-35); AST (SGOT) 334 U/L (14-36); Albumin 3.3 g/dl (3.5-5.0); Alkaline Phosphatase 1191 U/L (38-126); Blood Urea Nitrogen 20 mg/dl (7-17); Calcium 10.1 mg/dl (8.4-10.2); Carbon Dioxide 27 mmol/L (22-30); Chloride 101 mmol/L (98-107); Estimated Creatinine Clearance 55 ml/min; Glucose 159 mg/dl (70-99); Magnesium 1.6 mg/dl (1.6-2.3); Phosphorus 3.2 mg/dl (2.5-4.5); Potassium 4.4 mmol/L (3.5-5.1); Sodium 137 mmol/L (135-145); Total Bilirubin 11.1 mg/dl (0.2-1.3); Total Protein 6.8 g/dl (6.3-8.2); eGFR > 60.00
[2023-11-26] MEDS: NOVOLOG FLEXPEN-LOW RESISTANCE 1 UNITS SC ×2 (09:05→12:05)
[2023-11-26] MEDS: NEURONTIN 100 MG PO ×2 (09:07→21:23)
[2023-11-26] MEDS: MIRALAX 17 GRAMS PO (09:07)
[2023-11-26] MEDS: COLACE 100 MG PO (09:07)
[2023-11-26] MEDS: PROTONIX 40 MG PO (09:07)
[2023-11-26] MEDS: CLARITIN 10 MG PO (09:07)
[2023-11-26] MEDS: GLUCOPHAGE PO ×2 (09:08→19:45)
[2023-11-26] MEDS: SENOKOT PO ×2 (09:08→19:54)
[2023-11-26] MEDS: ZESTRIL 20 MG PO ×2 (09:08→20:09)
[2023-11-26] MEDS: FLUSH (NSS) 1 FLUSH IV (09:09)
[2023-11-26] MEDS: ZENPEP DELAYED RELEASE CAPSULE PO ×3 (09:47→19:45)
[2023-11-26 10:19] LABS: Glucose - Point of Care 198 mg/dl (70-99)
--- NOTE | 2023-11-26 10:26 | PTOTSP ---
pt currently demonstrates ability to complete simple ADLs, functional transfers, ambulation with supervision to no assistance. will defer to PT for ambulation. no acute OT needs identified at this time, will sign off.
--- NOTE | 2023-11-26 11:19 | W.PN.ONC ---
Today's Communication / Plan
-
ERCP today, hopefully with a diagnosis and successful stent placement.
Impression
Impression
painless jaundice
pancreatic head mass w/ ductal dilatation
h/o lung cancer
h/o breast cancer
paroxysmal afib
Plan
Plan
1. Pancreatic head mass - ductal dilatation - painless jaundice
-GI consulted - EGD/ EUS w/ ERCP possible stent this week
-w/ vascular involvement on MRI
-additional staging studies will need to be performed - PET/CT as outpt
-Ca 19-9 checked as outpt - pending
-await pathology
will continue to follow with you
Subjective/Objective
Subjective/Objective
She is feeling reasonably well. She reports no new symptoms. Physical examination is unchanged.
Vital Signs:
Vital Signs
Temp Pulse Resp BP Pulse Ox
98.4 F 66 16 140/60 95
11/26/23 11:13 11/26/23 11:13 11/26/23 11:13 11/26/23 11:13 11/26/23 11:13
Lab Results:
Laboratory Data
WBC 9.0 10^3/uL (4.8-10.8) 11/26/23 07:15
Hgb 10.5 g/dL (12.0-16.0) L 11/26/23 07:15
Plt Count 310 10^3/uL (130-400) 11/26/23 07:15
PT 20.5 Sec (11.4-14.6) H 11/24/23 07:36
INR 1.77 11/24/23 07:36
APTT Cancelled 11/23/23 16:30
eGFR > 60.00 11/26/23 07:15
[2023-11-26 11:40] LABS: Glucose - Point of Care 177 mg/dl (70-99)
--- NOTE | 2023-11-26 15:41 | W.PN.CARDCBS ---
Today's Communication / Plan
-
Stable cardiology status for biopsy
Start Eliquis 2.5 mg p.o. twice daily after recovery from biopsy
No further pauses
Impression / Plan
-
Scalehouse Attendant: Dr. Lorenzana ([facility])
Impression:
Presented with abdominal swelling
Pancreatic mass, concern for malignancy
Paroxysmal atrial fibrillation - newly diagnosed
spontaneously converted to SR in ER
Hypokalemia
HTN
HLD
DM
History of R breast cancer s/p mastectomy, chemotherapy, radiation 1999
History of L lung cancer s/p lobectomy 2000
h/o carotid stenosis s/p L carotid stent
mild by echo 12/2020
h/o CVA
Former smoker
ANASTASIA, compliant w/ CPAP
Echo 01/06/2021 @[facility]: EF 50-55%, mild cLVH, mild w/ peak/mean gradients 22/14 mmHg
Echo 11/22/2023: Mild LVH, EF 60-65%, trace mitral regurgitation, thickened mitral leaflets, mildly dilated left atrium, mild aortic stenosis, peak gradient 24 mmHg, mean gradient 13 mmHg, normal right heart with normal pulmonary artery pressure
Plan:
Pauses have resolved
Would start Eliquis 2.5 mg twice daily recovering from endoscopic biopsy
Stable cardiology status for biopsy
Outpatient follow-up will be with Dr. Josemanuel Lorenzana who knows her well.
HPI: Sheela is an 83 year old female with PMH of pancreatic mass, HTN, HLD, DM, breast cancer, lung cancer, carotid stent, hemorrhagic stroke, and former tobacco abuse who presented to [facility] for evaluation due to abdominal swelling and abnormal
labwork. She was recently found to have a pancreatic mass and workup has been started with [place]. She reports she was told she may need drainage/biopsy this admission. In ER, she was found to be in rapid atrial fibrillation on initial EKG. She
reports no history of atrial fibrillation, but follows with Dr. Salomón. She was asymptomatic with her atrial fibrillation and denies any chest pain, palpitations, dizziness, lightheadedness, LE edema, or SOB. States she felt a bit anxious coming in
to the ER, just because she was unsure what was ahead as far as management/plan for the pancreatic mass, however other than anxiety, felt well. While in ER, spontaneously converted to SR and remains in SR at this time. She states she feels no
different now than when she did when she entered the ER.
Progress Note - Scalehouse Attendant
Subjective
Date of Service: November 26, 2023
No complaints
Objective
Labs:
11/26/23 07:15
11/26/23 07:15
Labs
Hgb 10.5 g/dL (12.0-16.0) L 11/26/23 07:15
Hct 31.0 % (37.0-47.0) L 11/26/23 07:15
Plt Count 310 10^3/uL (130-400) 11/26/23 07:15
PT 20.5 Sec (11.4-14.6) H 11/24/23 07:36
INR 1.77 11/24/23 07:36
APTT Cancelled 11/23/23 16:30
Sodium 137 mmol/L (135-145) 11/26/23 07:15
Potassium 4.4 mmol/L (3.5-5.1) 11/26/23 07:15
BUN 20 mg/dl (7-17) H 11/26/23 07:15
Creatinine 0.6 mg/dL (0.6-1.0) 11/26/23 07:15
Glucose 159 mg/dl (70-99) H 11/26/23 07:15
Vital Signs and I&O:
Vital Signs
Temp Pulse Resp BP Pulse Ox
98.4 F 66 16 140/60 95
11/26/23 11:13 11/26/23 11:13 11/26/23 11:13 11/26/23 11:13 11/26/23 11:13
Vital Signs
Temp Pulse Resp BP Pulse Ox
98.4 F 66 16 140/60 95
11/26/23 11:13 11/26/23 11:13 11/26/23 11:13 11/26/23 11:13 11/26/23 11:13
Intake & Output
11/24/23 11/25/23 11/26/23 11/27/23
06:59 06:59 06:59 06:59
Intake Total 350 / 350 580 / 580 480 / 480
Output Total 3 / 3
Balance 350 / 350 577 / 577 480 / 480
Physical Exam
Physical Exam
General: Well developed, well nourished in NAD.
Neck: Supple, no JVD, HJR, carotids +2 B/L, no bruits bilaterally.
Heart: Non displaced PMI, RRR, no murmurs, No S3, S4, no rubs.
Lungs: Clear to auscultation bilaterally, no wheeze, rhonchi, rubs bilaterally,
normal expiratory phase.
Extremities: No clubbing, cyanosis or edema bilaterally.
Neuro: Grossly nonfocal, awake, alert and oriented x3.
--- NOTE | 2023-11-26 16:27 | PTCARENOTE ---
Pt AAO x3, ZHAO well, OOB in chair for most of shift; ambulatory to BR; abram well, no c/o weakness/dizziness. Pt pleasant and cooperative. VSS. Telemetry:NSR. On room air- pulse ox 98%, no c/o SOB. Abd soft, rounded, BS (+); decreased, no c/o abd
discomfort. NPO for shift for GI procedure. Voiding dark marquis urine in BR. Pt currently off unit in GI lab; will continue to monitor upon return to unit.
[2023-11-26 17:13] LABS: Glucose - Point of Care 152 mg/dl (70-99)
[2023-11-26 18:08] LABS: Glucose - Point of Care 151 mg/dl (70-99)
[2023-11-26] MEDS: APRESOLINE 5 MG IV ×4 (18:31→19:01)
[2023-11-26] MEDS: NEURONTIN PO (19:45)
[2023-11-26] MEDS: COLACE PO (19:54)
[2023-11-26] MEDS: ZENPEP DELAYED RELEASE CAPSULE 1 CAPSULE PO (21:23)
[2023-11-26 21:35] LABS: Glucose - Point of Care 241 mg/dl (70-99)
[2023-11-26] MEDS: NOVOLOG FLEXPEN-LOW RESISTANCE SC (21:52)
[2023-11-27] VITALS (9 sets, daily range): BP systolic 92–164; BP diastolic 56–86; BMI 23.0
[2023-11-27 06:01] LABS: Hematocrit 30.1 % (37.0-47.0); Hemoglobin 10.1 g/dL (12.0-16.0); Mean Corp Hgb Conc. 33.6 g/dL (33.0-37.0); Mean Corpuscular Hgb 30.5 pg (27.0-31.0); Mean Corpuscular Volume 90.9 fL (81.0-99.0); Platelet Count 308 10^3/uL (130-400); Red Blood Cell Count 3.31 10^6/uL (4.20-5.40); Red Cell Dist. Width 14.6 % (11.5-14.5); White Blood Cell Count 9.4 10^3/uL (4.8-10.8)
[2023-11-27 06:35] LABS: ALT (SGPT) 168 U/L (0-35); AST (SGOT) 218 U/L (14-36); Albumin 3.2 g/dl (3.5-5.0); Alkaline Phosphatase 1059 U/L (38-126); Blood Urea Nitrogen 24 mg/dl (7-17); Calcium 10.3 mg/dl (8.4-10.2); Carbon Dioxide 23 mmol/L (22-30); Chloride 101 mmol/L (98-107); Estimated Creatinine Clearance 47 ml/min; Glucose 213 mg/dl (70-99); Magnesium 1.6 mg/dl (1.6-2.3); Phosphorus 4.8 mg/dl (2.5-4.5); Potassium 4.6 mmol/L (3.5-5.1); Sodium 138 mmol/L (135-145); Total Bilirubin 5.6 mg/dl (0.2-1.3); Total Protein 6.5 g/dl (6.3-8.2); eGFR > 60.00
[2023-11-27 07:12] LABS: Glucose - Point of Care 224 mg/dl (70-99)
--- NOTE | 2023-11-27 07:52 | W.PN.HOSP.TC ---
Today's Communication/Plan
-
diet advance as per GI
glycemic control
blood pressure control
pain control
discharge planning Home tomorrow if remains stable
Assessment / Plan
Assessment / Plan
Physical Exam
General: No acute distress appears comfortable, jaundice
HEENT: Normocephalic Atraumatic PERRLA scleral icterus
CVS: S1-S2 normal
Chest: CTA B/L
Abdomen: Soft, NT / Bowel sounds present
Extremities: No edema, normal pulses
DESIGN SALES CONSULTANT: AOx3
MRI/MRCP-Mass within the pancreatic head/proximal body consistent with neoplasm with associated vascular involvement and pancreatic ductal dilatation as described.
There is complex cystic change within the uncinate process measuring up to 2.1 x 1.2 x 1.4 cm, possibly representing additional dilated ducts versus separate pancreatic cystic or ductal neoplasm.
Diffuse dilatation of the intrahepatic and extrahepatic bile ducts with the common bile duct measuring up to 1.9 cm.
ECHO-Mild left ventricular hypertrophy with preserved systolic function, EF 60-65%.Mitral annular calcification, trace mitral regurgitation, thickened mitral leaflets and mildly dilated left atrium .
Mild aortic stenosis, peak/mean gradients 24/13 mmHg.Normal right heart with normal pulmonary artery systolic pressure
# Pancreatic mass
Likely malignancy with patient's weight loss, loss of appetite, painless jaundice
Markedly elevated LFTS trending down, bilirubin trending down following stent placement
ERCP/EUS and stent placement Tues 11/25 Pancreatic status post sphincterotomy with biliary stent and FNA of pancreatic head mass, pathology pending
Patient does not have any symptoms of infection, consistently afebrile, no need for abx at this time.
GI and oncology consultation appreciated.
CA 19-9 level high 16,850
# Paroxysmal atrial fibrillation
Patient had rapid A-fib in the ER currently in sinus rhythm
Patient does not report a history
Also has an aortic area murmur on exam
Echo noted
Cardiology evaluation appreciated outpatient close follow up with her water tanker driver Dr Lorenznaa arranged
Low dose BB stopped due to pauses/Lebron
Eliquis held for ERCP/EUS stent placement substituted with Lovenox held prior to procedure, cleared to resume Eliquis 11/27 as per GI
# Hypokalemia-corrected
# Hypomagnesemia- Corrected.
# Hypertension-hold off on amlodipine continue lisinopril and add beta-mary alice
# Hyperlipidemia-hold off on atorvastatin given elevated LFTs
# Diabetes-sliding scale coverage with Accu-Cheks
A1c 7.8
Added Metformin, continue
# History of right breast cancer with mastectomy chemo and radiation 1999
# History of lung cancer on the left side with history of lobectomy in 2000
# Bb-cwvikz-towr in 2003
# History of carotid stent on the left side
# History of hemorrhagic stroke-details unclear
# Chronic right arm pain after shoulder surgery for which she is on gabapentin and hydrocodone
# DVT prophylaxis-Lovenox
# Full code
discussed with patient
I spent a total of 55 minutes with the patient or on the floor. More than 50% of this time involved counseling and coordination of care.
Anticipated Discharge: Within 24 hours
Subjective/Interval History
-
Date of Service: November 27, 2023
Seen and examined at bedside in no acute distress sitting up comfortably in chair. reports overall feeling well. Tolerating diet.
Objective Data
-
Labs:
Laboratory Results
11/27/23
05:36
WBC 9.4
Hgb 10.1 L
Hct 30.1 L
Plt Count 308
Sodium 138
Potassium 4.6
Chloride 101
Carbon Dioxide 23
BUN 24 H
Creatinine 0.7
Glucose 213 H
Calcium 10.3 H
Total Bilirubin 5.6 H
AST 218 H
ALT 168 H
Alkaline Phosphatase 1059 H
Vital Signs:
Vital Signs
Temp Pulse Resp BP Pulse Ox
98.3 F 88 16 153/76 98
11/27/23 03:50 11/27/23 03:50 11/27/23 03:50 11/27/23 03:50 11/27/23 03:50
I&O
11/26/23 11/27/23 11/28/23
06:59 06:59 06:59
Intake Total 480 / 480 220 / 220
Balance 480 / 480 220 / 220
[2023-11-27] MEDS: NOVOLOG FLEXPEN-LOW RESISTANCE 2 UNITS SC ×2 (08:39→17:23)
[2023-11-27] MEDS: PROTONIX 40 MG PO (08:40)
[2023-11-27] MEDS: MIRALAX 17 GRAMS PO (08:40)
[2023-11-27] MEDS: ZENPEP DELAYED RELEASE CAPSULE 1 CAPSULE PO ×4 (08:40→21:13)
[2023-11-27] MEDS: CLARITIN 10 MG PO (08:40)
[2023-11-27] MEDS: GLUCOPHAGE 500 MG PO ×2 (08:41→17:22)
[2023-11-27] MEDS: COLACE PO ×2 (08:41→19:46)
[2023-11-27] MEDS: NEURONTIN 100 MG PO ×3 (08:41→21:13)
[2023-11-27] MEDS: FLUSH (NSS) 1 FLUSH IV (08:42)
[2023-11-27] MEDS: ZESTRIL 20 MG PO ×2 (08:42→21:13)
[2023-11-27] MEDS: SENOKOT PO ×2 (08:42→19:46)
--- NOTE | 2023-11-27 10:35 | PTCARENOTE ---
Noted 10 sec run of sinus tachy on telemetry; then developed SB to 40's with occ PVC's and junctional beats. Pt asymptomatic; asleep in chair but easily arousable; denies any sx. BP 146/57. Telemetry currently showing NSR. EKG done. Dr. Estrada
and Dr. Gillespie notified. Will continue to monitor.
--- NOTE | 2023-11-27 11:32 | W.PN.GI.CBS2 ---
Addendum entered and electronically signed by Marge Acharya MD 11/27/23 13:43:
I saw and examined the patient.
The SALVAGE SUPERVISOR's note was reviewed and I agree with the note.
Comment: Obstructive jaundice most likely from pancreatic neoplasm with malignant stricture, status post EUS and ERCP results as noted below she is status post sphincterotomy with biliary stent and FNA of pancreatic head mass, most likely malignant
with elevated Ca 19-9 and she is going to follow-up with Dr. Davidson as outpatient. Okay to restart Eliquis tomorrow and follow-up with Dr. Nash in 3 months. Will sign off and will be available as needed
Addendum entered and electronically signed by SHELBY Duran 11/27/23 12:50:
ok to resume Eliquis 11/[address] Nash
Original Note:
Today's Communication / Plan
-
doing well post ERCP/EUS results as noted
LFT's improving
marked elevated Ca19-9
advance to ADA diet
path pending
following [facility] oncology and due follow up with Dr. Davidson outpatient-- will need OP PET scan
message sent to office to arrange 3 month follow up with Dr. Nash
Assessment / Plan
-
Sheela is an 83yo W with h/o breast cancer and lung cancer followed by Dr Mayfield sent to ED from [place] for abnormal CT at [place] with pancreatic mass. She also reports jaundice for past 2 wks and new diabetes diagnosed 2 months ago.
Her sister had pancreatic cancer
11/25 EUS-- panc head mass, NxMX, FNA completed, dilation of CBD up to 17 mm, no pathology in ampulla, no pathology in liver
11/25 ERCP- papilla normal, severe biliary stricture lower third of main panc duct, malignant appearing with dilatation of upper third, middle third, left and right main hepatic ducts, biliary sphincterotomy performed. one plastic stent in place
right hepatic duct, plastic stent in common hepatic duct
Impression
- Painless jaundice
- Pancreatic head mass with vascular involvement and CBD dilation 1.9cm on MRI 11/22
-elevated CA 19-9 79432 11/21
- New afib
- h/o lung cancer
- h/o breast cancer
- CVA
- DM
- ANASTASIA
Recommendation
doing well post ERCP/EUS results as noted
LFT's improving
marked elevated Ca19-9
advance to ADA diet
path pending
following [facility] oncology and due follow up with Dr. Davidson outpatient-- will need OP PET scan
message sent to office to arrange 3 month follow up with Dr. Nash
Subjective
Subjective
Date of Service: November 27, 2023
11/25 brown stool on clear diet, no abdominal pain no complaints
Objective
Data Reviewed
Laboratory Data:
Laboratory Results
11/27/23 05:36
11/27/23 05:36
Laboratory Results
PT 20.5 Sec (11.4-14.6) H 11/24/23 07:36
INR 1.77 11/24/23 07:36
APTT Cancelled 11/23/23 16:30
Phosphorus 4.8 mg/dl (2.5-4.5) H 11/27/23 05:36
Magnesium 1.6 mg/dl (1.6-2.3) 11/27/23 05:36
Total Bilirubin 5.6 mg/dl (0.2-1.3) H 11/27/23 05:36
AST 218 U/L (14-36) H 11/27/23 05:36
ALT 168 U/L (0-35) H 11/27/23 05:36
Alkaline Phosphatase 1059 U/L (38-126) H 11/27/23 05:36
Lipase 157 U/L (23-300) 11/22/23 13:47
Vital Signs and I&O:
Vital Signs
Temp Pulse Resp BP Pulse Ox
98.8 F 68 18 144/59 98
11/27/23 10:30 11/27/23 10:30 11/27/23 10:30 11/27/23 10:30 11/27/23 10:30
I&O
11/26/23 11/27/23 11/28/23
06:59 06:59 06:59
Intake Total 480 / 480 220 / 220
Balance 480 / 480 220 / 220
Physical Exam
Physical Exam
HEENT: Other (jaundice )
Cardiology: Normal Sinus Rhythm
Pulmonary: Clear
GI: Soft, Non Distended and Non Tender
Extremities: No Edema
Neuro: Non Focal
--- NOTE | 2023-11-27 12:27 | W.PN.CARDCBS ---
Addendum entered and electronically signed by Josemanuel Chowdary MD 11/27/23 14:07:
Attending addendum: Patient seen and examined. PA note reviewed and findings confirmed by me. Briefly, 83 y/o female with new onset PAF with spontaneous conversion to SR. She is undergoing evaluation of mass in the head of the pancreas s/p
biopsy. Feels well.
PE:
Gen: Playing cards. Interactive and pleasant
HEENT: NC/AT, sclera anicteric
CV: RRR II/ murmur USB
Ext: No edema
RECOMMENDATIONS:
-I met and discussed plans with patient:
Dr. Lorenzana appointment 11/28 at 1400
Plan reduced dose apixaban 2.5mg bid given age and weight
-Pancreatic mass: s/p biopsy. Will be followed as an outpatient
-Atrial fibrillation:
Holding on beta mary alice or consideration of antiarrhythmic drug because of bradycardia and occasional short pauses
Eliquis 2.5 mg bid : Age >80 and weight < 60 kg
-HTN:
Lisinopril back to admission dose and amlodipine restarted
-DM:
Appt scheduled with Dr. Lorenzana
Mild with preserved LVEF
Original Note:
Today's Communication / Plan
-
Restart amlodipine 5 mg daily
Need to decide if outpatient dose of Lasix should be restarted
TT to GI to see if Eliquis can be started tonight or tomorrow-- GI said to start tomorrow
Called Dr. Lorenzana's office to facilitate follow up and they were closed for lunch
Impression / Plan
-
Water Resources Technical Officer: Dr. Lorenzana ([facility] Cardiology)
Impression:
Presented with abdominal swelling
Pancreatic mass, concern for malignancy
Paroxysmal atrial fibrillation - newly diagnosed
spontaneously converted to SR in ER
Hypokalemia
HTN
HLD
DM
History of R breast cancer s/p mastectomy, chemotherapy, radiation 1999
History of L lung cancer s/p lobectomy 2000
h/o carotid stenosis s/p L carotid stent
mild by echo 12/2020
h/o CVA
Former smoker
ANASTASIA, compliant w/ CPAP
Echo 01/06/2021 @[facility]: EF 50-55%, mild cLVH, mild w/ peak/mean gradients 22/14 mmHg
Echo 11/22/2023: Mild LVH, EF 60-65%, trace mitral regurgitation, thickened mitral leaflets, mildly dilated left atrium, mild aortic stenosis, peak gradient 24 mmHg, mean gradient 13 mmHg, normal right heart with normal pulmonary artery pressure
Plan:
-Patient with new paroxysmal Afib this admission and spontaneously converted to SR. Remains in SR by my review of tele 11/27/23. Patient was started on metoprolol earlier this admission, but it was then stopped due to bradycardia and brief pauses.
-Will start Eliquis 2.5 mg BID (age 83, wt 56 kg and Cre 0.7) once cleared by GI following pancreatic mass biopsy 11/26/23-- Talked with GI 11/27/23 at 1255 and they want to start Eliquis 2.5 mg BID 11/28/23 AM. Orders changed.
-BP still high at time. Outpatient dose of lisinopril increased to 20 mg BID this admission.
-Patient was taking amlodipine 5 mg daily prior to admission and this has been on hold. Will restart amlodipine 5 mg daily on 11/27/23
-Outpatient dose of Lasix 40 mg PO daily has also been on hold since admission. Weight is stable. Cre is stable
-Patient will need to follow up with her primary educational resource coordinator. Called Dr. Lorenzana' office on 11/27/23, but they were closed for lunch.
HPI: Sheela is an 83 year old female with PMH of pancreatic mass, HTN, HLD, DM, breast cancer, lung cancer, carotid stent, hemorrhagic stroke, and former tobacco abuse who presented to [facility] for evaluation due to abdominal swelling and abnormal
labwork. She was recently found to have a pancreatic mass and workup has been started with [place]. She reports she was told she may need drainage/biopsy this admission. In ER, she was found to be in rapid atrial fibrillation on initial EKG. She
reports no history of atrial fibrillation, but follows with Dr. Lorenzana. She was asymptomatic with her atrial fibrillation and denies any chest pain, palpitations, dizziness, lightheadedness, LE edema, or SOB. States she felt a bit anxious coming in
to the ER, just because she was unsure what was ahead as far as management/plan for the pancreatic mass, however other than anxiety, felt well. While in ER, spontaneously converted to SR and remains in SR at this time. She states she feels no
different now than when she did when she entered the ER.
Progress Note - Water Resources Technical Officer
Subjective
Date of Service: November 27, 2023
She feels fine, no palpitations
Objective
Labs:
11/27/23 05:36
11/27/23 05:36
Labs
Hgb 10.1 g/dL (12.0-16.0) L 11/27/23 05:36
Hct 30.1 % (37.0-47.0) L 11/27/23 05:36
Plt Count 308 10^3/uL (130-400) 11/27/23 05:36
PT 20.5 Sec (11.4-14.6) H 11/24/23 07:36
INR 1.77 11/24/23 07:36
APTT Cancelled 11/23/23 16:30
Sodium 138 mmol/L (135-145) 11/27/23 05:36
Potassium 4.6 mmol/L (3.5-5.1) 11/27/23 05:36
BUN 24 mg/dl (7-17) H 11/27/23 05:36
Creatinine 0.7 mg/dL (0.6-1.0) 11/27/23 05:36
Glucose 213 mg/dl (70-99) H 11/27/23 05:36
Vital Signs and I&O:
Vital Signs
Temp Pulse Resp BP Pulse Ox
98.8 F 68 18 144/59 98
11/27/23 10:30 11/27/23 10:30 11/27/23 10:30 11/27/23 10:30 11/27/23 10:30
Vital Signs
Temp Pulse Resp BP Pulse Ox
98.8 F 68 18 144/59 98
11/27/23 10:30 11/27/23 10:30 11/27/23 10:30 11/27/23 10:30 11/27/23 10:30
Intake & Output
11/25/23 11/26/23 11/27/23 11/28/23
06:59 06:59 06:59 06:59
Intake Total 580 / 580 480 / 480 220 / 220
Output Total 3 / 3
Balance 577 / 577 480 / 480 220 / 220
Physical Exam
Physical Exam
GEN: NAD. AAOx3. Appears younger than stated age
HEENT: EOMI, MMM
LUNGS: No audible wheeze
CV: SR on tele
ABD: ND
EXT: No edema
NEURO: Gross non-focal
SKIN: No rash
[2023-11-27 12:53] LABS: Glucose - Point of Care 262 mg/dl (70-99)
[2023-11-27] MEDS: NOVOLOG FLEXPEN-LOW RESISTANCE 3 UNITS SC (12:59)
[2023-11-27] MEDS: NORVASC 5 MG PO (12:59)
--- NOTE | 2023-11-27 15:06 | CM ---
Sheela is (I) amb and adl's and will be discharged to home with her when medically ready. No needs identified at this time.
--- NOTE | 2023-11-27 15:23 | PTCARENOTE ---
Pt AAO x3, M AE well, OOB in chair for most of shift, ambulates to BR; occ uses walker with ambulation; no c/o weakness/dizziness. VSS. Telemetry:currently NSR. On room air- pulse ox 96%, no c/o SOB. Abd large, soft, abram 1800 marion diet well.
Voiding in BR without difficulty. resting comfortably at present, no c/o. Will continue to monitor.
[2023-11-27] MEDS: ROXICODONE 5 MG PO ×2 (16:14→21:13)
--- NOTE | 2023-11-27 16:31 | PTCARENOTE ---
Pt still having episodes of sinus leona/junctional leona; asymptomatic. Kassidy WARNER notified. Will continue to monitor.
[2023-11-27 16:47] LABS: Glucose - Point of Care 219 mg/dl (70-99)
[2023-11-27 21:13] LABS: Glucose - Point of Care 239 mg/dl (70-99)
[2023-11-28] VITALS (11 sets, daily range): BP systolic 104–183; BP diastolic 52–79; PULSE 75–77; O2SAT 98; BMI 22.9
--- NOTE | 2023-11-28 06:56 | W.PN.HOSP.TC ---
Today's Communication/Plan
-
NPO after midnight for ppm as per cardio
hold AM Eliquis for ppm
blood pressure control
glycemic control
Assessment / Plan
Assessment / Plan
Physical Exam
General: No acute distress appears comfortable, jaundice
HEENT: Normocephalic Atraumatic PERRLA scleral icterus
CVS: S1-S2 normal
Chest: CTA B/L
Abdomen: Soft, NT / Bowel sounds present
Extremities: No edema, normal pulses
MANAGER INVESTMENT BANKING: AOx3
MRI/MRCP-Mass within the pancreatic head/proximal body consistent with neoplasm with associated vascular involvement and pancreatic ductal dilatation as described.
There is complex cystic change within the uncinate process measuring up to 2.1 x 1.2 x 1.4 cm, possibly representing additional dilated ducts versus separate pancreatic cystic or ductal neoplasm.
Diffuse dilatation of the intrahepatic and extrahepatic bile ducts with the common bile duct measuring up to 1.9 cm.
ECHO-Mild left ventricular hypertrophy with preserved systolic function, EF 60-65%.Mitral annular calcification, trace mitral regurgitation, thickened mitral leaflets and mildly dilated left atrium .
Mild aortic stenosis, peak/mean gradients 24/13 mmHg.Normal right heart with normal pulmonary artery systolic pressure
# Pancreatic mass
Likely malignancy with patient's weight loss, loss of appetite, painless jaundice
Markedly elevated LFTS trending down, bilirubin trending down following stent placement
ERCP/EUS and stent placement Tues 11/25 Pancreatic status post sphincterotomy with biliary stent and FNA of pancreatic head mass, pathology pending
Patient does not have any symptoms of infection, consistently afebrile, no need for abx at this time.
GI and oncology consultation appreciated.
CA 19-9 level high 16,850
# Paroxysmal atrial fibrillation
#Frequent Heart Pauses
Recurrent Afib RVR
Echo noted
Cardiology evaluation appreciated outpatient close follow up with her merry go round attendant Dr Lorenzana arranged
Low dose BB stopped due to pauses/Lebron
Eliquis held for ERCP/EUS stent placement substituted with Lovenox held prior to procedure, cleared to resume Eliquis 11/27 as per GI
npo after midnight for ppm, Eliquis on hold in AM
# Hypokalemia-corrected
# Hypomagnesemia- Corrected.
# Hypertension- amlodipine and lisinopril as per cardio, holding BB d/t heart pauses
# Hyperlipidemia-hold off on atorvastatin given elevated LFTs
# Diabetes-sliding scale coverage with Accu-Cheks
A1c 7.8
Added Metformin, continue
# History of right breast cancer with mastectomy chemo and radiation 1999
# History of lung cancer on the left side with history of lobectomy in 2000
# De-dfoqri-hlmi in 2003
# History of carotid stent on the left side
# History of hemorrhagic stroke-details unclear
# Chronic right arm pain after shoulder surgery for which she is on gabapentin and hydrocodone
# DVT prophylaxis-Lovenox
# Full code
discussed with patient
I spent a total of 55 minutes with the patient or on the floor. More than 50% of this time involved counseling and coordination of care.
Anticipated Discharge: 24 - 48 hours
Subjective/Interval History
-
Date of Service: November 28, 2023
Seen and examined at bedside in no acute distress sitting up comfortably in chair. Day's event notable for recurrent heart pauses asymptomatic and afib rvr resolved with once amiodarone as per cardio.
Objective Data
-
Labs:
Laboratory Results
11/28/23
06:00
WBC Pending
Hgb Pending
Hct Pending
Plt Count Pending
Sodium Pending
Potassium Pending
Chloride Pending
Carbon Dioxide Pending
BUN Pending
Creatinine Pending
Glucose Pending
Calcium Pending
Total Bilirubin Pending
AST Pending
ALT Pending
Alkaline Phosphatase Pending
Vital Signs:
Vital Signs
Temp Pulse Resp BP Pulse Ox
98.0 F 66 18 168/69 99
11/28/23 03:30 11/28/23 03:30 11/28/23 03:30 11/28/23 03:30 11/28/23 03:30
I&O
11/26/23 11/27/23 11/28/23
06:59 06:59 06:59
Intake Total 480 / 480 220 / 220 1140 / 1140
Balance 480 / 480 220 / 220 1140 / 1140
[2023-11-28 07:29] LABS: Hematocrit 29.9 % (37.0-47.0); Hemoglobin 9.9 g/dL (12.0-16.0); Mean Corp Hgb Conc. 33.1 g/dL (33.0-37.0); Mean Corpuscular Hgb 30.5 pg (27.0-31.0); Mean Platelet Volume 10.9 fL (7.4-10.4); Platelet Count 315 10^3/uL (130-400); Red Blood Cell Count 3.25 10^6/uL (4.20-5.40); Red Cell Dist. Width 14.6 % (11.5-14.5)
[2023-11-28 07:56] LABS: Glucose - Point of Care 197 mg/dl (70-99)
[2023-11-28 08:04] LABS: ALT (SGPT) 124 U/L (0-35); AST (SGOT) 114 U/L (14-36); Albumin 3.3 g/dl (3.5-5.0); Alkaline Phosphatase 855 U/L (38-126); Blood Urea Nitrogen 25 mg/dl (7-17); Calcium 9.9 mg/dl (8.4-10.2); Carbon Dioxide 27 mmol/L (22-30); Chloride 101 mmol/L (98-107); Estimated Creatinine Clearance 47 ml/min; Glucose 171 mg/dl (70-99); Magnesium 1.7 mg/dl (1.6-2.3); Phosphorus 2.5 mg/dl (2.5-4.5); Potassium 4.6 mmol/L (3.5-5.1); Sodium 137 mmol/L (135-145); Total Bilirubin 4.3 mg/dl (0.2-1.3); Total Protein 6.7 g/dl (6.3-8.2); eGFR > 60.00
[2023-11-28] MEDS: COLACE 100 MG PO ×2 (08:48→20:44)
[2023-11-28] MEDS: NEURONTIN 100 MG PO ×3 (08:48→22:30)
[2023-11-28] MEDS: ZENPEP DELAYED RELEASE CAPSULE 1 CAPSULE PO ×4 (08:48→22:30)
[2023-11-28] MEDS: SENOKOT 8.59999999999999964 MG PO ×2 (08:48→20:44)
[2023-11-28] MEDS: ZESTRIL 20 MG PO ×2 (08:48→20:44)
[2023-11-28] MEDS: PROTONIX 40 MG PO (08:48)
[2023-11-28] MEDS: NORVASC 5 MG PO (08:48)
[2023-11-28] MEDS: CLARITIN 10 MG PO (08:48)
[2023-11-28] MEDS: GLUCOPHAGE 500 MG PO ×2 (08:49→17:11)
[2023-11-28] MEDS: ELIQUIS 2.5 MG PO ×2 (08:49→20:44)
[2023-11-28] MEDS: NOVOLOG FLEXPEN-LOW RESISTANCE 1 UNITS SC ×2 (08:49→17:12)
[2023-11-28] MEDS: MIRALAX 17 GRAMS PO (08:50)
[2023-11-28] MEDS: ROXICODONE 5 MG PO ×3 (08:51→22:30)
--- NOTE | 2023-11-28 10:34 | W.PN.CARDCBS ---
Today's Communication / Plan
-
Repeat BP after am meds
Anticipate D/C home today
Impression / Plan
-
Assistant Press Operator: Dr. Lorenzana ([facility] Cardiology)
Impression:
Presented with abdominal swelling
Pancreatic mass, concern for malignancy
Paroxysmal atrial fibrillation - newly diagnosed
spontaneously converted to SR in ER
Hypokalemia
HTN
HLD
DM
History of R breast cancer s/p mastectomy, chemotherapy, radiation 1999
History of L lung cancer s/p lobectomy 2000
h/o carotid stenosis s/p L carotid stent
mild by echo 12/2020
h/o CVA
Former smoker
ANASTASIA, compliant w/ CPAP
Echo 01/06/2021 @[facility]: EF 50-55%, mild cLVH, mild w/ peak/mean gradients 22/14 mmHg
Echo 11/22/2023: Mild LVH, EF 60-65%, trace mitral regurgitation, thickened mitral leaflets, mildly dilated left atrium, mild aortic stenosis, peak gradient 24 mmHg, mean gradient 13 mmHg, normal right heart with normal pulmonary artery pressure
Plan:
New paroxysmal Afib this admission and spontaneously converted to SR.
-Remains In sinus rhythm on telemetry
-Continue Eliquis 2.5 mg twice daily (Age >80 and weight < 60 kg)
-No beta-mary alice at this time due to bradycardia and occasional short pauses on telemetry
Obstructive jaundice most likely from pancreatic neoplasm with malignant stricture
-status post EUS and ERCP
-status post sphincterotomy with biliary stent and FNA of pancreatic head mass, most likely malignant with elevated Ca 19-9
-She is going to follow-up with Dr. Davidson And Dr. Nash as outpatient.
Hypertension with elevated blood pressure
-Repeat blood pressures after morning meds
-Outpatient dose of lisinopril increased to 20 mg BID this admission.
-Restarted amlodipine 5 mg daily on 11/27/23
-As an outpatient she has been on Lasix 40 mg once daily which has been held this admission with stable weights and creatinine. Does not appear volume overloaded. Will continue to hold Lasix until seen by her outpatient bioinformatics scientist
History of carotid stenosis and CVA
-Outpatient atorvastatin has been held due to elevated LFTs; Outpatient discussion with ATC and GI regarding timing to restart
Outpatient follow-up with Dr. Lorenzana 11/29/2023
Plan to discharge home today
HPI: Sheela is an 83 year old female with PMH of pancreatic mass, HTN, HLD, DM, breast cancer, lung cancer, carotid stent, hemorrhagic stroke, and former tobacco abuse who presented to [facility] for evaluation due to abdominal swelling and abnormal
labwork. She was recently found to have a pancreatic mass and workup has been started with [facility]. She reports she was told she may need drainage/biopsy this admission. In ER, she was found to be in rapid atrial fibrillation on initial EKG. She
reports no history of atrial fibrillation, but follows with Dr. Lorenzana. She was asymptomatic with her atrial fibrillation and denies any chest pain, palpitations, dizziness, lightheadedness, LE edema, or SOB. States she felt a bit anxious coming in
to the ER, just because she was unsure what was ahead as far as management/plan for the pancreatic mass, however other than anxiety, felt well. While in ER, spontaneously converted to SR and remains in SR at this time. She states she feels no
different now than when she did when she entered the ER.
Progress Note - Assistant Press Operator
Subjective
Date of Service: November 28, 2023
Seen and examined. Patient out of bed to chair and feels wonderful. Is anxious to be discharged later today
Objective
Labs:
11/28/23 07:05
11/28/23 07:05
Labs
Hgb 9.9 g/dL (12.0-16.0) L 11/28/23 07:05
Hct 29.9 % (37.0-47.0) L 11/28/23 07:05
Plt Count 315 10^3/uL (130-400) 11/28/23 07:05
PT 20.5 Sec (11.4-14.6) H 11/24/23 07:36
INR 1.77 11/24/23 07:36
APTT Cancelled 11/23/23 16:30
Sodium 137 mmol/L (135-145) 11/28/23 07:05
Potassium 4.6 mmol/L (3.5-5.1) 11/28/23 07:05
BUN 25 mg/dl (7-17) H 11/28/23 07:05
Creatinine 0.7 mg/dL (0.6-1.0) 11/28/23 07:05
Glucose 171 mg/dl (70-99) H 11/28/23 07:05
Vital Signs and I&O:
Vital Signs
Temp Pulse Resp BP Pulse Ox
98.5 F 63 18 181/74 97
11/28/23 07:15 11/28/23 07:15 11/28/23 07:15 11/28/23 07:15 11/28/23 07:15
Vital Signs
Temp Pulse Resp BP Pulse Ox
98.5 F 63 18 181/74 97
11/28/23 07:15 11/28/23 07:15 11/28/23 07:15 11/28/23 07:15 11/28/23 07:15
Intake & Output
11/26/23 11/27/23 11/28/23 11/29/23
06:59 06:59 06:59 06:59
Intake Total 480 / 480 220 / 220 1140 / 1140
Balance 480 / 480 220 / 220 1140 / 1140
Physical Exam
Physical Exam
GEN: NAD. AAOx3. Appears younger than stated age
HEENT: mmm
LUNGS:Bronchovesicular breath sounds. Clear
CV: Regular, positive S1-S2. 2/6 VIRI
ABD: ND +BS
EXT: No edema
--- NOTE | 2023-11-28 11:00 | W.PN.ONC ---
Today's Communication / Plan
-
S/P EUS and ERCP with biliary stent and FNA of the pancreatic mass
-w/ vascular involvement on MRI
-Additional staging studies will need to be performed - PET/CT as outpt
-Ca 19-9 markedly elevated m=16,850
-Await pathology
-Stable for discharge
Impression
Impression
painless jaundice
pancreatic head mass w/ ductal dilatation
h/o lung cancer
h/o breast cancer
paroxysmal afib
Subjective/Objective
Subjective/Objective
Sitting in the chair little appetite today ate no breakfast
Vital Signs:
Vital Signs
Temp Pulse Resp BP Pulse Ox
98.5 F 63 18 181/74 97
11/28/23 07:15 11/28/23 07:15 11/28/23 07:15 11/28/23 07:15
Physical Exam
General: No acute distress appears comfortable, jaundice
HEENT: scleral icterus
CVS: S1-S2 normal
Chest: CTA B/L
Abdomen: Soft, NT / Bowel sounds present
Extremities: No edema, normal pulses
Lab Results:
Laboratory Data
WBC 15.0 10^3/uL (4.8-10.8) H 11/28/23 07:05
Hgb 9.9 g/dL (12.0-16.0) L 11/28/23 07:05
Plt Count 315 10^3/uL (130-400) 11/28/23 07:05
PT 20.5 Sec (11.4-14.6) H 11/24/23 07:36
INR 1.77 11/24/23 07:36
APTT Cancelled 11/23/23 16:30
eGFR > 60.00 11/28/23 07:05
[2023-11-28 11:49] LABS: Glucose - Point of Care 257 mg/dl (70-99)
[2023-11-28] MEDS: NOVOLOG FLEXPEN-LOW RESISTANCE 3 UNITS SC (11:57)
[2023-11-28] MEDS: LOPRESSOR 5 MG IV (13:39)
--- NOTE | 2023-11-28 13:48 | PTCARENOTE ---
Uncontrolled AFIB noted on tele. EKG done. HR 130-155. BP 125/79. Cardiology made aware. 5mg IV lopressor given per orders. Continue to monitor on tele.
[2023-11-28] MEDS: PACERONE 200 MG PO (14:47)
--- NOTE | 2023-11-28 14:54 | CM ---
Sheela was feeling better today and we had a good talk. She and her have sold their house and are currently living with their son and D-I-L while the townhouse they are moving to is completed (new construction).
She shared with me that she has had breast and lung cancer and 'beat it', so she is staying positive about the pancreatic mass found during this admission. Support provided.
She continues to be ambulatory and able to care for herself. She enjoys walking, often takes her [place] for walks outside.
Plan: Sheela plans to return home with family; no needs identified at this time.
PCP: Dr. Ana Zelaya
Pharmacy: [facility] in [place]
--- NOTE | 2023-11-28 15:26 | PTCARENOTE ---
Patient in AFIB, with 6.6 second pause. Converted to NSR following pause. Nursing staff with patient at bedside during pause and reported patient was briefly unresponsive. Dr. Chowdary and Dr. lai aware of monitor activity. EKG done. Patient is in
bed. No complaints. VSS.
--- NOTE | 2023-11-28 15:32 | W.PN.UPDATE ---
Update Note
Progress Note Update
Attending addendum: Spoke with patient, Dr. Galicia, Dr. Lorenzana. Patient was scheduled for discharge when she went back into atrial fibrillation with RVR that did not respond to IV lopressor x 5 mg 1x dose. An hour later she was still in atrial
fibrillation. My initial plan was amiodarone 200mg now and 200 mg bid. She received a single oral 200mg dose of amiodarone and about 15 minutes later had a 6.7 sec pause with some dizziness. She is asymptomatic in atrial fibrillation even with
RVR. She was treated w sphincterotomy and biliary stent for obstruction and elevated LFT's related to pancreatic mass. Pathology is pending. At this point, less may be more. She is asymptomatic in atrial fibrillation even with rapid ventricular
response. No prior syncopal episodes but maybe a little dizziness with this latest episode.
I discussed with Dr. Lorenzana. We will monitor for next hour or so and if stable discharge with plans to followup with Dr. Lorenzana tomorrow 11/28. Discussed with Dr. Lynn.
I spent 1 hour coordinating care / decision making re: afib. Spoke with EP, with primary cardiology, and with Hospitalists and nursing. I reviewed old records including GI notes and Onc Notes.
--- NOTE | 2023-11-28 16:40 | PTCARENOTE ---
Patient with 8.9 second pause and 4.8 second pause back to back. Was sleeping in chair reports no symptoms. Dr. Chowdary aware. Orders for NPO past ulises SOUZA scheduled for AM. Currently in NSR 78.
[2023-11-28 17:00] LABS: Glucose - Point of Care 193 mg/dl (70-99)
--- NOTE | 2023-11-28 18:37 | PTCARENOTE ---
Dr. Chowdary made aware patient is now in uncontrolled AFIB HR 150. Per Dr. Chowdary allow for Higher heart, no need to treat at this time.
[2023-11-28 21:13] LABS: Glucose - Point of Care 212 mg/dl (70-99)
[2023-11-29] VITALS (15 sets, daily range): BP systolic 75–163; BP diastolic 49–118; PULSE 63; BMI 23.3
--- NOTE | 2023-11-29 00:58 | W.PN.UPDATE ---
Update Note
Progress Note Update
Notified by RN that pt back in rapid afib with HRs to 150s
At 2345 pt had 5.94 sec pause (throughout day pt has had many pauses up to 7 sec), and 9 beat VT
Earlier when i was rounding pt was sinus leona with HR in 30s. asymptomatic.
Pt is for planned pacemaker in am
RN did reach out to cardiology manager distribution center ( Dr charline cortez) who suggested metoprolol tartrate 25mg po
Will check bp, mag
With asymptomatic nature of rapid afib and frequency of pauses--leary to start the metoprolol.
Will transfer to ivu for closer monitoring
--- NOTE | 2023-11-29 01:29 | TRANSFER ---
Received patient Patient in room had at 2122 had a 7.7second pause, BP 136/65. at 2345 patient had a 5.94 pause. The patient has consistently been going into Rapid Afib HR 150-160 along with HR 30-77 and VTach 9 beat run. She is complaining of
'heaviness' in the chest. BP 183/67. Markell Costa notified via tiger text, replied: Give oral metoprolol tartrate 25 mg now. She is planned for pacer in AM. Have house doc eval . Dixie Issa at bedside. Will transfer patient as
per order. Report given to Rossy and patient transferred to room 7704.
[2023-11-29 01:42] LABS: Blood Urea Nitrogen 19 mg/dl (7-17); Calcium 9.7 mg/dl (8.4-10.2); Carbon Dioxide 26 mmol/L (22-30); Chloride 100 mmol/L (98-107); Estimated Creatinine Clearance 55 ml/min; Glucose 205 mg/dl (70-99); Magnesium 1.5 mg/dl (1.6-2.3); Potassium 4.2 mmol/L (3.5-5.1); Sodium 134 mmol/L (135-145); eGFR > 60.00
[2023-11-29] MEDS: MAGNESIUM SULFATE 50 IV (02:09)
[2023-11-29 05:32] LABS: Hematocrit 28.4 % (37.0-47.0); Hemoglobin 9.6 g/dL (12.0-16.0); Mean Corp Hgb Conc. 33.8 g/dL (33.0-37.0); Mean Corpuscular Hgb 30.6 pg (27.0-31.0); Mean Corpuscular Volume 90.4 fL (81.0-99.0); Mean Platelet Volume 10.7 fL (7.4-10.4); Platelet Count 309 10^3/uL (130-400); Red Blood Cell Count 3.14 10^6/uL (4.20-5.40); Red Cell Dist. Width 14.3 % (11.5-14.5); White Blood Cell Count 13.9 10^3/uL (4.8-10.8)
[2023-11-29] MEDS: ROXICODONE 5 MG PO ×4 (06:04→23:03)
--- NOTE | 2023-11-29 06:34 | PTCARENOTE ---
Cared for pt overnight. Pt transferred to the floor around 0115 for bradycardia & frequent pauses. Pt was NSR/SB/AFIB overnight.
Pt had 10.5 second pause and 8 second pause while sleeping. Asymptomatic. VSS. HAND METHOD LASTING MACHINE OPERATOR aware. Mg given overnight for 1.5. IN for pacemaker today. Will continue to monitor.
[2023-11-29 06:46] LABS: Glucose - Point of Care 236 mg/dl (70-99)
[2023-11-29 07:06] LABS: ALT (SGPT) 89 U/L (0-35); AST (SGOT) 77 U/L (14-36); Alkaline Phosphatase 659 U/L (38-126); Blood Urea Nitrogen 20 mg/dl (7-17); Calcium 9.6 mg/dl (8.4-10.2); Carbon Dioxide 22 mmol/L (22-30); Chloride 102 mmol/L (98-107); Estimated Creatinine Clearance 55 ml/min; Glucose 198 mg/dl (70-99); Magnesium 2.5 mg/dl (1.6-2.3); Phosphorus 2.8 mg/dl (2.5-4.5); Potassium 4.5 mmol/L (3.5-5.1); Sodium 132 mmol/L (135-145); Total Bilirubin 3.5 mg/dl (0.2-1.3); Total Protein 6.3 g/dl (6.3-8.2); eGFR > 60.00
--- NOTE | 2023-11-29 07:25 | W.PN.HOSP.TC ---
Today's Communication/Plan
-
NPO for ppm as per cardio
hold Eliquis
blood pressure control
glycemic control
Assessment / Plan
Assessment / Plan
Physical Exam
General: No acute distress appears comfortable, jaundice
HEENT: Normocephalic Atraumatic PERRLA scleral icterus
CVS: S1-S2 normal
Chest: CTA B/L
Abdomen: Soft, NT / Bowel sounds present
Extremities: No edema, normal pulses
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
MRI/MRCP-Mass within the pancreatic head/proximal body consistent with neoplasm with associated vascular involvement and pancreatic ductal dilatation as described.
There is complex cystic change within the uncinate process measuring up to 2.1 x 1.2 x 1.4 cm, possibly representing additional dilated ducts versus separate pancreatic cystic or ductal neoplasm.
Diffuse dilatation of the intrahepatic and extrahepatic bile ducts with the common bile duct measuring up to 1.9 cm.
ECHO-Mild left ventricular hypertrophy with preserved systolic function, EF 60-65%.Mitral annular calcification, trace mitral regurgitation, thickened mitral leaflets and mildly dilated left atrium .
Mild aortic stenosis, peak/mean gradients 24/13 mmHg.Normal right heart with normal pulmonary artery systolic pressure
# Pancreatic mass
Likely malignancy with patient's weight loss, loss of appetite, painless jaundice
Markedly elevated LFTS trending down, bilirubin trending down following stent placement
ERCP/EUS and stent placement Tues 11/25 Pancreatic status post sphincterotomy with biliary stent and FNA of pancreatic head mass, pathology pending
Patient does not have any symptoms of infection, consistently afebrile, no need for abx at this time.
GI and oncology consultation appreciated.
CA 19-9 level high 16,850
# Paroxysmal atrial fibrillation
#Frequent Heart Pauses
Recurrent Afib RVR
Echo noted
Cardiology evaluation appreciated outpatient close follow up with her medical grade shoemaker Dr Lorenzana arranged
Low dose BB stopped due to pauses/[place]
Eliquis held for ERCP/EUS stent placement substituted with Lovenox held prior to procedure, cleared to resume Eliquis 11/27 as per GI
later developed afib rvr with associate heart pauses and LFT dysfunction (though improving) limiting options for rate rhythm control, transferred to IMU for closer monitoring 11/27
npo for ppm today 11/28 Eliquis on hold
# Hypokalemia-corrected
# Hypomagnesemia- Corrected.
# Hypertension- amlodipine and lisinopril as per cardio, holding BB d/t heart pauses
# Hyperlipidemia-hold off on atorvastatin given elevated LFTs
# Diabetes-sliding scale coverage with Accu-Cheks
A1c 7.8
Added Metformin, continue
# History of right breast cancer with mastectomy chemo and radiation 1999
# History of lung cancer on the left side with history of lobectomy in 2000
# Qn-yllumy-yveq in 2003
# History of carotid stent on the left side
# History of hemorrhagic stroke-details unclear
# Chronic right arm pain after shoulder surgery for which she is on gabapentin and hydrocodone
# DVT prophylaxis-Lovenox
# Full code
discussed with patient
I spent a total of 55 minutes with the patient or on the floor. More than 50% of this time involved counseling and coordination of care.
Anticipated Discharge: 24 - 48 hours
Subjective/Interval History
-
Date of Service: November 29, 2023
In afib rvr this morning. Asymptomatic, denies chest pain palpitations
Objective Data
-
Labs:
Laboratory Results
11/29/23 11/29/23
01:02 05:22
WBC 13.9 H
Hgb 9.6 L
Hct 28.4 L
Plt Count 309
Sodium 134 L 132 L
Potassium 4.2 4.5
Chloride 100 102
Carbon Dioxide 26 22
BUN 19 H 20 H
Creatinine 0.6 0.6
Glucose 205 H 198 H
Calcium 9.7 9.6
Total Bilirubin 3.5 H
AST 77 H
ALT 89 H
Alkaline Phosphatase 659 H
Vital Signs:
Vital Signs
Temp Pulse Resp BP Pulse Ox
98.7 F 61 15 121/70 97
11/29/23 03:25 11/29/23 06:00 11/29/23 06:00 11/29/23 06:00 11/29/23 06:00
I&O
11/28/23 11/29/23 11/30/23
06:59 06:59 06:59
Intake Total 1140 / 1140
Output Total 500 / 500
Balance 1140 / 1140 -500 / -500
--- NOTE | 2023-11-29 08:02 | W.PN.UPDATE ---
Update Note
Progress Note Update
Patient with significant tachybrady syndrome/sick sinus syndrome with her difficult to control AF RVR. Patient experienced multiple pauses including a 9s pause during daytime on 11/27 and a 6s conversion pause overnight 11/27-11/28 requiring transfer
to IMU. Patient will need rate/rhythm controlling medications given her significant symptomatic AF. I discussed with patient regarding pacemaker implantation. We discussed pacemaker indications and device implant in detail. For implant there is an
approximate 1:1000 risk of NV/stroke/ and a 1% risk of pneumothorax/tamponade/infection/bleeding. We also discussed post procedure implant restrictions including positions to avoid with implant arm for first six weeks after implant as well as
driving restrictions. I took time to answer all questions. Additionally, we discussed that due to her prior bilateral ports with removals, we will plan to due a venogram to assess vascular patency. If both sides are occluded, will plan tentatively
for implantation of leadless pacemaker which also carries a 1:1000 risk of NV/stroke/ and an 1% risk of vascular injury or tamponade; rare dislodgment requiring intervention. Patient verbalized understanding and agreed with plan. Consent
obtained and placed in chart. Keep NPO, hold OAC.
--- NOTE | 2023-11-29 08:09 | PTCARENOTE ---
Pt AAOx3 pleasant no complaints Pt in SB 40-50 now flipped to afib at 144 . Seen by cards for pacer later this morning. PPt remains NPO except meds
--- NOTE | 2023-11-29 08:43 | PTCARENOTE ---
Cards notified of AFIB pacer pads on pt
--- NOTE | 2023-11-29 09:19 | PTCARENOTE ---
Pt converted to SB after a 7.[address] Gay aware. Pt stated she felt it.
[2023-11-29] MEDS: NEURONTIN 100 MG PO ×3 (09:25→23:04)
[2023-11-29] MEDS: NORVASC 5 MG PO (09:25)
[2023-11-29] MEDS: GLUCOPHAGE 500 MG PO ×2 (09:25→16:29)
[2023-11-29] MEDS: PROTONIX 40 MG PO (09:26)
[2023-11-29] MEDS: ZESTRIL 20 MG PO ×2 (09:26→20:58)
[2023-11-29] MEDS: CLARITIN 10 MG PO (09:27)
[2023-11-29] MEDS: ZENPEP DELAYED RELEASE CAPSULE 1 CAPSULE PO ×3 (09:27→23:04)
[2023-11-29] MEDS: COLACE 100 MG PO ×2 (09:27→20:58)
[2023-11-29] MEDS: MIRALAX PO (09:27)
[2023-11-29] MEDS: SENOKOT PO (09:43)
[2023-11-29] MEDS: NOVOLOG FLEXPEN-LOW RESISTANCE 2 UNITS SC ×2 (09:43→16:55)
[2023-11-29] MEDS: NOVOLOG FLEXPEN-LOW RESISTANCE 1 UNITS SC (11:58)
[2023-11-29] MEDS: ZENPEP DELAYED RELEASE CAPSULE PO (12:08)
[2023-11-29 12:13] LABS: Glucose - Point of Care 198 mg/dl (70-99)
--- NOTE | 2023-11-29 14:44 | W.PN.ONC ---
Today's Communication / Plan
-
for pacemaker
bili down to 2.5
outpt f/u for pancreatic cancer - 12/10
Impression
Impression
painless jaundice
pancreatic head mass w/ ductal dilatation
h/o lung cancer
h/o breast cancer
paroxysmal afib
tachybrady syndrome/sick sinus syndrome
Plan
Plan
1. Pancreatic head mass - ductal dilatation - painless jaundice
-s/p EGD/ EUS w/ ERCP w/ stent
-w/ vascular involvement on MRI
-additional staging studies will need to be performed - PET/CT as outpt
-Ca 19-9 elevated
-await pathology
will continue to follow with you
Subjective/Objective
Subjective/Objective
for pacemaker later today
Vital Signs:
Vital Signs
Temp Pulse Resp BP Pulse Ox
98.3 F 56 15 94/53 94
11/29/23 12:11 11/29/23 12:00 11/29/23 12:00 11/29/23 10:00 11/29/23 12:00
Lab Results:
Laboratory Data
WBC 13.9 10^3/uL (4.8-10.8) H 11/29/23 05:22
Hgb 9.6 g/dL (12.0-16.0) L 11/29/23 05:22
Plt Count 309 10^3/uL (130-400) 11/29/23 05:22
PT 20.5 Sec (11.4-14.6) H 11/24/23 07:36
INR 1.77 11/24/23 07:36
APTT Cancelled 11/23/23 16:30
eGFR > 60.00 11/29/23 05:22
--- NOTE | 2023-11-29 15:05 | ITS.CL.PACE ---
Dress Draper - Pacemaker Implant
Pacemaker Implant
Procedure Report:
Primary Machine Tester: Josemanuel Lorenzana DO
Procedure Date: 11/29/2023
Name of procedure:
1. Placement of a dual-chamber pacemaker
2. Subclavian venography
History:
1. Patient is a pleasant 83-year-old female with past medical history significant for hypertension hyperlipidemia diabetes mellitus type 2 breast cancer status postmastectomy chemotherapy radiation 1999, status post left lung cancer status post
lobectomy 2000 carotid stenosis (left) mild , history of CVA former smoker sleep apnea on CPAP paroxysmal atrial fibrillation, pancreatic mass and abdominal swelling, tachybradycardia/sick sinus syndrome with symptomatic 9-second pauses
2. Please refer to H&P for complete history.
Indication:
Sick sinus syndrome
Tachybradycardia syndrome
Need for rate controlling/AV ghulam blocking agents
Symptomatic 9-second sinus arrest/pauses
Methods:
After informed consent was obtained, the patient was brought to the EP laboratory in a postabsorptive, nonsedated state. Peripheral IV access was established. Prophylactic antibiotics were administered prior to incision. Continuous ECG, blood
pressure, and pulse oximetry were initiated. Cardioversion patch electrodes were placed on the patient's chest and back. A grounding patch was applied to the skin. Sedation was administered anesthesia.
In order to define the extrathoracic portion of the subclavian vein and exclude significant venous obstruction or anomalous anatomy, subclavian venography was performed prior to the procedure. Using the patient's left peripheral IV, contrast was
injected and images were recorded. The left subclavian vein and SVC were found to be widely patent.
The left chest was prepared and draped in a sterile fashion. A time-out was performed. Local anesthesia was injected in the subcutaneous tissue in the infraclavicular area. An incision was made medial to the deltopectoral groove. The subcutaneous
tissue was dissected the level of the prepectoral fascia. A subcutaneous pocket was created. Under fluoroscopic guidance and with the assistance of the images from the venogram, 2 separate venipunctures were made using micropuncture and modified
Seldinger technique. These were performed in the extrathoracic portion of the subclavian vein. Guidewires were passed and two peel-away sheaths were placed, and used to advance leads into the circulation.
Using fluoroscopic guidance, the leads were positioned. The RV lead was advanced to the RV/outflow tract. Ventricular ectopy was recorded. Images were taken in JOHNSON and VI[place]ESE views to ensure appropriate lead placement. The lead tip was subsequently
positioned on the apical septum. Adequate sensing and pacing parameters were found, and no diaphragmatic stimulation was seen with high-output pacing.
Next, the right atrial lead was positioned in the right atrial appendage. Adequate sensing and pacing parameters were found, and no diaphragmatic stimulation was seen with high-output pacing. Both sheaths were split, and the leads were secured to
the fascia with Ethibond ties.
The pocket was flushed with antibiotic solution and hemostasis was assured. Surgiflo was applied. The generator was connected to the leads and placed inside the pocket. The wound was closed with 3 running layers of absorbable suture, and
steri-strips were applied. Dressing applied over steri-strips in standard fashion.
Following the procedure, the patient was taken to the recovery area in stable condition. A chest x-ray was obtained in the holding area.
Lead parameters and device programming:
- RA Lead (Medtronic, Model 5076, #[id number]): Sensing 2.4 mV, Pacing threshold 0.5 V at 0.4 ms, Imp 570 Ohm
- RV Lead (Medtronic, Model 5076, #[id number]): Sensing 4.3 mV, Pacing threshold 1.5 V at 0.4 ms, Imp 1273 Ohm
- Device: Medtronic, Model [id number] pacemaker (#[id number]), programmed AAIR-DDDR, mode switch onb, LRL 60, UTR 130
Conclusions:
1. Successful placement of a dual-chamber pacemaker
2. Subclavian venography
Recommendations:
1. Return to patient room
2. Portable chest x-ray
3. IV antibiotics while the patient is admitted.
4. OK to resume home medications as indicated; OK to resume Eliquis 6/2 AM if patient stable tomorrow 11/29
5. Pressure dressing to be removed in AM, aquacell to remain until wound check
6. Follow-up will be arranged in the office in 7-10 days post-discharge
7. Resume beta-mary alice, amiodarone for rate/rhythm control; close LFT monitoring for amiodarone, low threshold to discontinue if LFT change
Dimas Husain,
Clinical Cardiac Court Recorder
cc: Josemanuel Lorenzana DO
--- NOTE | 2023-11-29 15:22 | PTCARENOTE ---
Pt reurnfrom ep lab with DDDR dual chamber pacemaker rate 60-130 . Dressing CDI. Nocomplaints. sling on arm pt in sr with occ pacing
[2023-11-29 17:06] LABS: Glucose - Point of Care 241 mg/dl (70-99)
--- NOTE | 2023-11-29 17:08 | CM ---
Patient for possible pacemaker today, home with possible Eliquis cost $47 per month, per patient she has coupon, patient agreeable to VN, [facility]
Plan; Home with VN.
[2023-11-29 18:38] LABS: Glucose - Point of Care 302 mg/dl (70-99)
[2023-11-29] MEDS: SENOKOT 8.59999999999999964 MG PO (20:59)
[2023-11-29] MEDS: ANCEF 5 IV (20:59)
[2023-11-29 23:29] LABS: Glucose - Point of Care 317 mg/dl (70-99)
--- NOTE | 2023-11-30 03:16 | PTCARENOTE ---
Late note:Received from IMU around 2129. Left chest pacer site wnl. Patient took Oxycodone at for back and elbow pain with relief. SR on the monitor in the 60's. Sleeping at present.
[2023-11-30 03:35] VITALS: PULSE 60
[2023-11-30] MEDS: ANCEF 5 IV (03:47)
[2023-11-30] MEDS: FLUSH (NSS) 2 FLUSH IV (03:48)
[2023-11-30 03:53] VITALS: BP 199/75
[2023-11-30 05:13] LABS: Mean Corp Hgb Conc. 33.3 g/dL (33.0-37.0); Mean Corpuscular Hgb 30.4 pg (27.0-31.0); Mean Corpuscular Volume 91.2 fL (81.0-99.0); Mean Platelet Volume 10.8 fL (7.4-10.4); Platelet Count 322 10^3/uL (130-400); Red Blood Cell Count 3.29 10^6/uL (4.20-5.40); Red Cell Dist. Width 13.9 % (11.5-14.5); White Blood Cell Count 10.4 10^3/uL (4.8-10.8)
[2023-11-30 05:36] LABS: ALT (SGPT) 72 U/L (0-35); AST (SGOT) 67 U/L (14-36); Albumin 3.5 g/dl (3.5-5.0); Alkaline Phosphatase 714 U/L (38-126); Blood Urea Nitrogen 23 mg/dl (7-17); Carbon Dioxide 24 mmol/L (22-30); Chloride 100 mmol/L (98-107); Estimated Creatinine Clearance 47 ml/min; Glucose 256 mg/dl (70-99); Magnesium 2.1 mg/dl (1.6-2.3); Phosphorus 3.5 mg/dl (2.5-4.5); Potassium 4.7 mmol/L (3.5-5.1); Sodium 136 mmol/L (135-145); Total Bilirubin 3.4 mg/dl (0.2-1.3); eGFR > 60.00
[2023-11-30 05:44] VITALS: BP 171/56
[2023-11-30 07:31] VITALS: BP 142/77
[2023-11-30 07:38] LABS: Glucose - Point of Care 264 mg/dl (70-99)
--- NOTE | 2023-11-30 08:23 | W.PN.HOSP.TC ---
Today's Communication/Plan
-
discharge
Assessment / Plan
Assessment / Plan
Physical Exam
General: No acute distress appears comfortable, jaundice
HEENT: Normocephalic Atraumatic PERRLA scleral icterus
CVS: S1-S2 normal
Chest: CTA B/L
Abdomen: Soft, NT / Bowel sounds present
Extremities: No edema, normal pulses
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
MRI/MRCP-Mass within the pancreatic head/proximal body consistent with neoplasm with associated vascular involvement and pancreatic ductal dilatation as described.
There is complex cystic change within the uncinate process measuring up to 2.1 x 1.2 x 1.4 cm, possibly representing additional dilated ducts versus separate pancreatic cystic or ductal neoplasm.
Diffuse dilatation of the intrahepatic and extrahepatic bile ducts with the common bile duct measuring up to 1.9 cm.
ECHO-Mild left ventricular hypertrophy with preserved systolic function, EF 60-65%.Mitral annular calcification, trace mitral regurgitation, thickened mitral leaflets and mildly dilated left atrium .
Mild aortic stenosis, peak/mean gradients 24/13 mmHg.Normal right heart with normal pulmonary artery systolic pressure
# Pancreatic mass
Likely malignancy with patient's weight loss, loss of appetite, painless jaundice
Markedly elevated LFTS trending down, bilirubin trending down following stent placement
ERCP/EUS and stent placement Tues 11/25 Pancreatic status post sphincterotomy with biliary stent and FNA of pancreatic head mass, pathology positive for cancer
Patient does not have any symptoms of infection, consistently afebrile, no need for abx at this time.
GI and oncology consultation appreciated.
CA 19-9 level high 16,850
# Paroxysmal atrial fibrillation
#Frequent Heart Pauses
Recurrent Afib RVR
Echo noted
Low dose BB stopped due to pauses/[place]
Eliquis held for ERCP/EUS stent placement substituted with Lovenox held prior to procedure, cleared to resume Eliquis 11/27 as per GI
later developed afib rvr with associate heart pauses and LFT dysfunction (though improving) limiting options for rate rhythm control, transferred to IMU for closer monitoring 11/27
ppm 11/28
Cardio eval appreciated cleared for discharge, Eliquis to resume 11/30
# Hypokalemia-corrected
# Hypomagnesemia- Corrected.
# Hypertension- amlodipine and lisinopril as per cardio, BB held d/t heart pauses since restarted following ppm
# Hyperlipidemia-hold off on atorvastatin given elevated LFTs
# Diabetes-sliding scale coverage with Accu-Cheks
A1c 7.8
Added Metformin, continue
# History of right breast cancer with mastectomy chemo and radiation 1999
# History of lung cancer on the left side with history of lobectomy in 2000
# Oi-qmofwx-ftap in 2003
# History of carotid stent on the left side
# History of hemorrhagic stroke-details unclear
# Chronic right arm pain after shoulder surgery for which she is on gabapentin and hydrocodone
# DVT prophylaxis-Lovenox
# Full code
Medically stable for discharge home with outpatient follow up recommendations.
discussed with patient
Total Time Preparing Discharge ___50____ minutes including examination of the patient, summary of the hospital stay, instructions for continuing care to all relevant caregivers; and preparation of discharge records, prescriptions, and referral
forms if necessary.
Anticipated Discharge: Today
Subjective/Interval History
-
Date of Service: November 30, 2023
No acute distress sitting up comfortably in chair. Reports feeling well, significantly improved since ppm. Denies new acute issues. Eager to go home.
Objective Data
-
Labs:
Laboratory Results
11/30/23
04:48
WBC 10.4
Hgb 10.0 L
Hct 30.0 L
Plt Count 322
Sodium 136
Potassium 4.7
Chloride 100
Carbon Dioxide 24
BUN 23 H
Creatinine 0.7
Glucose 256 H
Calcium 10.0
Total Bilirubin 3.4 H
AST 67 H
ALT 72 H
Alkaline Phosphatase 714 H
Vital Signs:
Vital Signs
Temp Pulse Resp BP Pulse Ox
98.0 F 71 18 171/56 97
11/30/23 07:29 11/30/23 07:29 11/30/23 07:29 11/30/23 05:44 11/30/23 07:29
I&O
11/29/23 11/30/23 12/01/23
06:59 06:59 06:59
Intake Total 775 / 775
Output Total 500 / 500
Balance -500 / -500 775 / 775
[2023-11-30] MEDS: ROXICODONE 5 MG PO ×2 (09:12→15:37)
[2023-11-30] MEDS: NORVASC 5 MG PO (09:12)
[2023-11-30] MEDS: NEURONTIN 100 MG PO (09:12)
[2023-11-30] MEDS: GLUCOPHAGE 500 MG PO (09:12)
[2023-11-30] MEDS: ZESTRIL 20 MG PO (09:12)
[2023-11-30] MEDS: MIRALAX 17 GRAMS PO (09:12)
[2023-11-30] MEDS: PROTONIX 40 MG PO (09:12)
[2023-11-30] MEDS: ZENPEP DELAYED RELEASE CAPSULE 1 CAPSULE PO ×2 (09:12→11:57)
[2023-11-30] MEDS: COLACE PO (09:13)
[2023-11-30] MEDS: CLARITIN 10 MG PO (09:13)
[2023-11-30] MEDS: SENOKOT PO (09:13)
[2023-11-30] MEDS: NOVOLOG FLEXPEN-LOW RESISTANCE 3 UNITS SC ×2 (09:14→11:58)
--- NOTE | 2023-11-30 09:49 | W.PN.CARDCBS ---
Addendum entered and electronically signed by Leo Hall MD 11/30/23 10:31:
I saw and examined the patient.
The Break And Load Operator's note was reviewed and I agree with the note.
Comment:
GEN: No distress, awake, Ox3
HEENT: supple, anicteric, mmm
LUNGS: CTA, no wheezes/rales
CV: Reg, S1/S2, 1/6 syst LSB, no gallop
ABD: soft, BS+, NT/ND
EXT: No edema
NEURO: Gross non-focal
SKIN: dressing c/d/i
Plan:
Doing well status post permanent pacemaker. Resume Toprol 25 mg daily. Restart Eliquis 2.5 mg twice daily in AM.
Currently in sinus rhythm
Okay for discharge from cardiology standpoint.
Has pancreatic mass which will need further evaluation
Original Note:
Today's Communication / Plan
-
Resume Toprol at 25mg daily
Resume Eliquis 2.5mg BID in AM 11/30.
Incision check appointment arranged
Follow up after w/ Dr. Lorenzana.
Impression / Plan
-
Volumetric Weigher: Dr. Lorenzana ([facility])
Impression:
Presented with abdominal swelling
Pancreatic mass, concern for malignancy
Paroxysmal atrial fibrillation - newly diagnosed
spontaneously converted to SR in ER
Hypokalemia
HTN
HLD
DM
History of R breast cancer s/p mastectomy, chemotherapy, radiation 1999
History of L lung cancer s/p lobectomy 2000
h/o carotid stenosis s/p L carotid stent
mild by echo 12/2020
h/o CVA
Former smoker
ANASTASIA, compliant w/ CPAP
Echo 01/06/2021 @[facility]: EF 50-55%, mild cLVH, mild w/ peak/mean gradients 22/14 mmHg
Echo 11/22/2023: Mild LVH, EF 60-65%, trace mitral regurgitation, thickened mitral leaflets, mildly dilated left atrium, mild aortic stenosis, peak gradient 24 mmHg, mean gradient 13 mmHg, normal right heart with normal pulmonary artery pressure
Plan:
-Presented with new afib. Spontaneously converted to SR, however was noted to have 6.7 second conversion pause 11/27.
-s/p PPM 11/28.
-Remains in SR on review of telemetry. Will restart metoprolol for rate control at higher dose 25mg daily.
-Eliquis held pre-PPM, will resume in AM 11/30 per EP.
-S/p sphincterotomy with biliary stent and FNA of pancreatic head mass, most likely malignant with elevated Ca 19-9. She is going to follow-up with Dr. Davidson And Dr. Nash as outpatient.
-BP elevated. Follow with restarting Toprol at higher dose. Continue amlodipine and higher dose lisinopril 20mg BID.
-Continue to hold lasix until seen by OP criminal justice instructor.
-Outpatient atorvastatin has been held due to elevated LFTs; Outpatient discussion with ATC and GI regarding timing to restart
-Incision check appointment arranged w/ [facility]. Follow up w/ Dr. Lorenzana.
HPI: Sheela is an 83 year old female with PMH of pancreatic mass, HTN, HLD, DM, breast cancer, lung cancer, carotid stent, hemorrhagic stroke, and former tobacco abuse who presented to [facility] for evaluation due to abdominal swelling and abnormal
labwork. She was recently found to have a pancreatic mass and workup has been started with Sophia. She reports she was told she may need drainage/biopsy this admission. In ER, she was found to be in rapid atrial fibrillation on initial EKG. She
reports no history of atrial fibrillation, but follows with Dr. Lorenzana. She was asymptomatic with her atrial fibrillation and denies any chest pain, palpitations, dizziness, lightheadedness, LE edema, or SOB. States she felt a bit anxious coming in
to the ER, just because she was unsure what was ahead as far as management/plan for the pancreatic mass, however other than anxiety, felt well. While in ER, spontaneously converted to SR and remains in SR at this time. She states she feels no
different now than when she did when she entered the ER.
Progress Note - Volumetric Weigher
Subjective
Date of Service: November 30, 2023
Feeling well. No complaints.
Objective
Labs:
11/30/23 04:48
11/30/23 04:48
Labs
Hgb 10.0 g/dL (12.0-16.0) L 11/30/23 04:48
Hct 30.0 % (37.0-47.0) L 11/30/23 04:48
Plt Count 322 10^3/uL (130-400) 11/30/23 04:48
PT 20.5 Sec (11.4-14.6) H 11/24/23 07:36
INR 1.77 11/24/23 07:36
APTT Cancelled 11/23/23 16:30
Sodium 136 mmol/L (135-145) 11/30/23 04:48
Potassium 4.7 mmol/L (3.5-5.1) 11/30/23 04:48
BUN 23 mg/dl (7-17) H 11/30/23 04:48
Creatinine 0.7 mg/dL (0.6-1.0) 11/30/23 04:48
Glucose 256 mg/dl (70-99) H 11/30/23 04:48
Vital Signs and I&O:
Vital Signs
Temp Pulse Resp BP Pulse Ox
98.0 F 71 18 171/56 97
11/30/23 07:29 11/30/23 07:29 11/30/23 07:29 11/30/23 05:44 11/30/23 07:29
Vital Signs
Temp Pulse Resp BP Pulse Ox
98.0 F 71 18 171/56 97
11/30/23 07:29 11/30/23 07:29 11/30/23 07:29 11/30/23 05:44 11/30/23 07:29
Intake & Output
11/28/23 11/29/23 11/30/23 12/01/23
06:59 06:59 06:59 06:59
Intake Total 1140 / 1140 775 / 775
Output Total 500 / 500
Balance 1140 / 1140 -500 / -500 775 / 775
Physical Exam
Physical Exam
GEN: NAD. AAOx3. Appears younger than stated age
HEENT: mmm
LUNGS:Bronchovesicular breath sounds. Clear
CV: Regular, positive S1-S2. 2/6 VIRI
EXT: No edema
[2023-11-30 11:18] LABS: Glucose - Point of Care 239 mg/dl (70-99)
[2023-11-30 11:19] VITALS: BP 147/60
[2023-11-30] MEDS: TOPROL XL 25 MG PO (11:57)
--- NOTE | 2023-11-30 12:52 | W.DCSUMMARY ---
Discharge Summary
Discharge Data
Date of Admission: 11/22/23
Date of Discharge: 11/30/23
-
Pending Results: No
Hospital Course
83[address] a [address] done at [facility] which showed pancreatic mass. [facility] who referred her for MRI, possible CBD stent, and rule out infection. ER eval noted paroxysmal afib. She has noted dark urine and yellow eyes. Patient also reported 25
pound weight loss over 4 months and loss of appetite. She also noted a lump on her abdomen. MRI/MRCP noted Mass within the pancreatic head/proximal body consistent with neoplasm with associated vascular involvement and pancreatic ductal
dilatation. There was complex cystic change within the uncinate process measuring up to 2.1 x 1.2 x 1.4 cm, possibly representing additional dilated ducts versus separate pancreatic cystic or ductal neoplasm. Diffuse dilatation of the intrahepatic
and extrahepatic bile ducts with the common bile duct measuring up to 1.9 cm. ECHO-Mild left ventricular hypertrophy with preserved systolic function, EF 60-65%.Mitral annular calcification, trace mitral regurgitation, thickened mitral leaflets and
mildly dilated left atrium. Mild aortic stenosis, peak/mean gradients 24/13 mmHg.Normal right heart with normal pulmonary artery systolic pressure. Pancreatic mass likely malignancy with patient's weight loss, loss of appetite, painless jaundice.
Markedly elevated LFTS and bilirubin trending down following stent placement. ERCP/EUS and stent placement Tues 11/25 Pancreatic status post sphincterotomy with biliary stent and FNA of pancreatic head mass, pathology positive for cancer. Patient
did not have any symptoms of infection, consistently afebrile, no need for abx during hospitalization. GI and oncology consultation appreciated. CA 19-9 level high 16,850. Paroxysmal atrial fibrillation, frequent Heart Pauses, recurrent Afib RVR,
Low dose BB stopped due to pauses/[place]. Eliquis held for ERCP/EUS stent placement substituted with Lovenox held prior to procedure, cleared to resume Eliquis 11/27 as per GI. Later developed afib rvr with associate heart pauses and LFT
dysfunction (though improving), limited options for rate rhythm control, transferred to IMU for closer monitoring 11/27. Pacemaker was placed 11/28. Cardio evaluated cleared for discharge, Eliquis to resume 11/30. Hypertension was treated with
amlodipine and lisinopril as per cardio- BB held d/t heart pauses since restarted following ppm. For hx Hyperlipidemia, atorvastatin held given elevated LFTs resolving. Diabetes-sliding scale coverage with Accu-Cheks, A1c 7.8, metformin was added.
Patient also has pmhx right breast cancer with mastectomy chemo and radiation 1999, lung cancer on the left side with history of lobectomy in 2000, [id number] in 2003, History of carotid stent on the left side, History of hemorrhagic stroke,
Chronic right arm pain after shoulder surgery for which she is on gabapentin and opiate pain meds. Medically stable, patient was discharged home with outpatient follow up recommendations.
Discharge Plan
-
Patient Disposition: Home (Routine Discharge)
Discharge Diagnosis/Procedures: Pacemaker implant due to heart pauses tachybrady syndrome/sick sinus syndrome, atrial fibrillation, Painless Jaundice due to Pancreatic Head Mass Cancer status post ERCP/EUS status post sphincterotomy with biliary
stent placement with GI, Pancreatic insufficiency, Liver dysfunction resolving, Hypertension, Diabetes, Hyperlipidemia
Condition: Fair
Diet: Low Cholesterol
Activity: As tolerated
Driving Restrictions: No driving for 1 week
Bathing Restrictions: OK to Shower
Blood Work: Please repeat CBC and CMP with primary care provider in 1 week of discharge.
Others Tests: Please follow up with Oncology for outpatient PET/CT scan
Specialty Instructions: Weigh Daily- Call MD for wt gain/loss 3 lbs overnight/5 lbs in 1 week
Activity Restrictions/Additional Instructions:
Please follow up with your primary care provider in 1 week of discharge, keep your appointments with cardiology, follow up with Oncology and Graphic Design Teacher in 2 weeks of discharge, and follow up with GI in 3 months of discharge
Eliquis has been prescribed for atrial fibrillation to start 12/01/23
Home Lisinopril has been increased to 20 mg twice a day for better blood pressure control
Metoprolol has been prescribed for better heart rate control atrial fibrillation
Zenpep has been prescribed for pancreatic insufficiency
Oxycodone has been prescribed as needed for moderate to severe pain, 7 day supplies. Do not take other opiate pain medications such as Clio while this is prescribed. Follow up with your primary care provider if further adjustment/refill of pain
medication regimen is needed.
Please take medications as prescribed/recommended and follow up with primary care provider and/or other healthcare provider involved in your care for refills and/or further adjustment to your medication regimen as necessary.
Instructions: Apixaban, Lisinopril, Metoprolol, Pancrelipase
Stand Alone Forms: DC Inst - Implanted Device
Referrals:
[facility]- [facility] [Provider Group] - 12/09/23 2:00 pm (Incision check appointment)
Thomas Nash MD [Active] - (call next week to review pathology. Follow up 3 months with stent placement.)
Ana Zelaya DO [Family Provider] - in one week
Romeo Davidson MD [Active] - in two weeks
Josemanuel Lorenzana DO [Affiliate] - in two weeks (Please call Dr. Lorenzana's office to schedule a follow up visit in the next 2-3 weeks. )
Additional Discharge Medication Instructions: -Resume Eliquis on Saturday am 11/30
-STOP taking aspirin
-Your dose of Lasix (furosemide) was on hold throughout your admission to [facility]. Your weight was 125 lbs on the day of discharge.
Hold metformin post procedure, resume on Saturday evening
Prescriptions:
New
Eliquis 2.5 mg Tablet
2.5 mg PO BID Qty: 60 11RF
lisinopril 20 mg Tablet
20 mg PO BID 30 Days Qty: 60 0RF
metoprolol succinate 25 mg Tablet Extended Release 24 Hr
25 mg PO DAILY 30 Days Qty: 30 0RF
oxycodone 5 mg Tablet
5 mg PO Q6HPRN PRN (Reason: moderate severe pain) 7 Days Qty: 28 0RF
Zenpep 10,000-32,000 -42,000 unit Capsule,Delayed Release(Dr/Ec)
1 cap PO ACHS Qty: 90 0RF
Continued
amlodipine [Norvasc] 5 mg Tablet
5 mg PO DAILY
polyethylene glycol 3350 [Miralax] 17 gram Powder In Packet
17 g PO DAILY
calcium carbonate [Calcium 600] 600 mg calcium (1,500 mg) Tablet
600 mg PO DAILY
Vitamin C 100 mg Tablet
400 mg PO DAILY
gabapentin 100 mg Capsule
100 mg PO TID
multivitamin with minerals Tablet
1 tab PO DAILY
loratadine [Claritin] 10 mg Tablet
10 mg PO DAILY
omega 1-[id number]-[id number]-fish oil [Fish Oil] 1,000 mg (120 mg-180 mg) Capsule
1 cap PO BID
PreserVision AREDS 2,148 mcg-113 mg-45 mg-17.4mg Tablet
1 tab PO BID
Held
furosemide [Lasix] 40 mg Tablet
40 mg PO DAILY
Hold Instructions: Hold for now. Follow up with primary care provider and/or set key driver to determine if necessary tor resume.
atorvastatin [Lipitor] 40 mg Tablet
40 mg PO DAILY
Hold Instructions: Continue to hold at this time due to liver dysfunction. Follow up with primary care provider to determine when safe to resume or if necessary to resume.
Discontinued
aspirin 81 mg Tablet,Delayed Release (Dr/Ec)
81 mg PO DAILY
hydrocodone-acetaminophen 7.5-325 mg tablet
1 tab PO QID
lisinopril 10 mg Tablet
10 mg PO BID
Discharge Orders:
Discharge Patient (As Directed); Ordered 11/30/23
Ordered By: Magdalena Lynn
Discharge Date and Time
Discharge Date/Time: 11/30/23 16:13
Print Language: [email or web address]
== END 2023-11-30 16:13 | disposition home health service (06) | DRG 242 ==
LOC: IVU 16:45
PROVIDERS: Internal Medicine Cardiovascular Disease; Internal Medicine Gastroenterology; Nurse Practitioner Adult Health; Nurse Practitioner Family; Physician Assistant; Registered Nurse; ADMITTING PHYSICIAN Hospitalist; ATTENDING PHYSICIAN Internal Medicine; CONSULT PHYSICIAN Internal Medicine Cardiovascular Disease; CONSULT PHYSICIAN Internal Medicine Gastroenterology; CONSULT PHYSICIAN Internal Medicine Hematology & Oncology; EMERGENCY PHYSICIAN Emergency Medicine; FAMILY PHYSICIAN Family Medicine
PROC: 5A09357 Assistance with Respiratory Ventilation, Less than 24 Consecutive Hours, Continuous Positive Airway Pressure (ICD-10-PCS; 2023-11-22)
PROC: 0F9G8ZX Drainage of Pancreas, Via Natural or Artificial Opening Endoscopic, Diagnostic (ICD-10-PCS; 2023-11-26)
PROC: 0F778DZ Dilation of Common Hepatic Duct with Intraluminal Device, Via Natural or Artificial Opening Endoscopic (ICD-10-PCS; 2023-11-26)
PROC: 0F758DZ Dilation of Right Hepatic Duct with Intraluminal Device, Via Natural or Artificial Opening Endoscopic (ICD-10-PCS; 2023-11-26)
PROC: 0JH606Z Insertion of Pacemaker, Dual Chamber into Chest Subcutaneous Tissue and Fascia, Open Approach (ICD-10-PCS; 2023-11-29)
PROC: 02HK3JZ Insertion of Pacemaker Lead into Right Ventricle, Percutaneous Approach (ICD-10-PCS; 2023-11-29)
PROC: 02H63JZ Insertion of Pacemaker Lead into Right Atrium, Percutaneous Approach (ICD-10-PCS; 2023-11-29)
DX: I48.0 Paroxysmal atrial fibrillation (principal); K83.1 Obstruction of bile duct; C25.0 Malignant neoplasm of head of pancreas; I10 Essential (primary) hypertension; E78.00 Pure hypercholesterolemia, unspecified; E11.9 Type 2 diabetes mellitus without complications; E87.6 Hypokalemia; I49.5 Sick sinus syndrome; G47.33 Obstructive sleep apnea (adult) (pediatric); R63.0 Anorexia; R63.4 Abnormal weight loss; M79.601 Pain in right arm; G89.29 Other chronic pain; E83.42 Hypomagnesemia; I45.5 Other specified heart block; K59.09 Other constipation; Z68.32 Body mass index [BMI] 32.0-32.9, adult; Z79.82 Long term (current) use of aspirin; Z79.899 Other long term (current) drug therapy; Z85.118 Personal history of other malignant neoplasm of bronchus and lung; Z85.3 Personal history of malignant neoplasm of breast; Z86.73 Personal history of transient ischemic attack (TIA), and cerebral infarction without residual deficits; Z87.891 Personal history of nicotine dependence; Z92.3 Personal history of irradiation
CPT/HCPCS: 88172; 88173; 88305; 33208; 71045; 74183; 74330; 76000; 80048; 80053; 82248; 82962; 83036; 83690; 83735; 84100; 84443; 84484; 85025; 85027; 85610; 85730; 86301; 88177; 93005; 93306; 94660; 96360; 97116; 97162; 97165; 99285; A9575; C1769; C1785; C1892; C1898; C2617; Q9967

== ENCOUNTER → 2023-12-06 16:47 | Outpatient (REF) | payer MEDICARE, BC, SELFPAY ==
[2023-12-06 18:38] LABS: % Basophils 0.8 % (0-2); % Eosinophils 4.1 % (0-6); % Immature Granulocytes 0.5 % (0-0.5); % Lymphocytes 12.9 % (20.5-51.1); % Monocytes 10.7 % (1.7-9.3); Absolute Basophils 0.1 10^3/uL (0-0.2); Absolute Eosinophils 0.4 10^3/uL (0-0.7); Absolute Immature Granulocytes 0.1 10^3/uL (0-0.05); Absolute Lymphocytes 1.2 10^3/uL (1.2-3.4); Absolute Neutrophils 6.8 10^3/uL (1.4-6.5); Hematocrit 25.2 % (37.0-47.0); Hemoglobin 8.3 g/dL (12.0-16.0); Mean Corp Hgb Conc. 32.9 g/dL (33.0-37.0); Mean Corpuscular Hgb 31.4 pg (27.0-31.0); Mean Corpuscular Volume 95.5 fL (81.0-99.0); Mean Platelet Volume 10.6 fL (7.4-10.4); Nucleated Red Blood Cells % 0 %; Platelet Count 286 10^3/uL (130-400); Red Blood Cell Count 2.64 10^6/uL (4.20-5.40); Red Cell Dist. Width 15.5 % (11.5-14.5); White Blood Cell Count 9.6 10^3/uL (4.8-10.8)
[2023-12-06 18:41] LABS: ALT (SGPT) 51 U/L (0-35); AST (SGOT) 45 U/L (14-36); Albumin 3.5 g/dl (3.5-5.0); Alkaline Phosphatase 341 U/L (38-126); Blood Urea Nitrogen 13 mg/dl (7-17); Calcium 9.4 mg/dl (8.4-10.2); Carbon Dioxide 25 mmol/L (22-30); Chloride 104 mmol/L (98-107); Glucose 132 mg/dl (70-99); Potassium 3.9 mmol/L (3.5-5.1); Sodium 137 mmol/L (135-145); Total Protein 6.6 g/dl (6.3-8.2); eGFR > 60.00
== END ==
LOC: OLAB 16:47
PROVIDERS: ATTENDING PHYSICIAN Family Medicine
DX: K86.89 Other specified diseases of pancreas (principal); R17 Unspecified jaundice; I48.91 Unspecified atrial fibrillation
CPT/HCPCS: 80053; 85025

== ENCOUNTER → 2023-12-27 06:47 | Outpatient (REF) | payer MEDICARE, BC, SELFPAY ==
[2023-12-27 07:30] VITALS: BP 193/70; BP_SYST 74
[2023-12-27] MEDS: ANCEF 10 IV (08:38)
[2023-12-27 09:45] VITALS: BP 183/72; BP_SYST 60
[2023-12-27 09:50] VITALS: BP 183/72; BP_SYST 60
[2023-12-27 09:55] VITALS: BP 177/77; BP_SYST 61
[2023-12-27 10:05] VITALS: BP 190/69; BP_SYST 60
[2023-12-27 10:22] VITALS: BP 190/69
== END ==
LOC: RADI 06:47
PROVIDERS: ATTENDING PHYSICIAN Internal Medicine Hematology & Oncology; FAMILY PHYSICIAN Family Medicine
DX: C50.911 Malignant neoplasm of unspecified site of right female breast (principal)
CPT/HCPCS: 36561; 36598; 76937; 77001; 99152; 99153; C1788